=== PATIENT | male | born 1945 | race Caucasian/White ===

== ENCOUNTER 2018-07-20 20:02 | Inpatient (IN) ==
[2018-07-20] MEDS ORDERED: Isovue-370 500 ML INFUS..BTL IV ONE (20:44)
[2018-07-20] MEDS ORDERED: 0.9 % Sodium Chloride 1,000 ML IVC ONE (20:46)
[2018-07-20] MEDS ORDERED: Ondansetron 4 MG/2 ML VIAL IVP ONE (20:47)
[2018-07-20] MEDS ORDERED: *HR* FentaNYL (PF) 100 MCG/2 ML VIAL IVP ONE (20:47)
--- NOTE | 2018-07-20 20:48 | Emergency Department Note ---
Disposition Clinical Impression: Small bowel obstruction Disposition: Admitted As Inpatient Condition: Good Forms: ED Satisfaction Letter, Work/School Release General Adult HPI - General Chief complaint: ED Abdominal Pain Stated complaint: sent from to have CT scan Time Seen by Provider: 07/20/18 20:35 Source: patient Limitations: no limitations Nursing Notes Reviewed: Yes Vital Signs Reviewed: Yes - History of Present Illness HPI Narrative: Patient with significant past medical history including Crohn's disease as well as 2 previous resections. Last resection was approximately 15 years ago. Patient states is been doing well. Patient states symptoms started on Saturday with abdominal distention and pain. Presently worst cause an episode of vomiting today. Last meal was 10:00 on Saturday. Patient has not been passing gas. No recent bowel movement. The patient does have some mild abdominal di stention. Was seen at urgent care prior to arrival with KUB showing concern for dilated loops of bowel. Patient will be given fluids as well as pain and nausea medication. Last CT pending. Pain Scale: 6 - Related Data Home Medications Medication Instructions Recorded Confirmed Cholecalciferol (D-3) [Vitamin D] 2,000 unit PO DAILY 01/30/16 03/03/16 Cyanocobalamin (Vitamin B-12) 1,000 mcg SL DAILY 01/30/16 03/03/16 [Vitamin B-12] Finasteride [Proscar] 5 mg PO DAILY 01/30/16 03/03/16 Hyoscyamine SL [Levsin Sl] 0.125 mg SL Q6H PRN 01/30/16 03/03/16 Losartan [Cozaar] 25 mg PO DAILY 01/30/16 03/03/16 Omeprazole [PriLOSEC] 40 mg PO DAILY 01/30/16 03/03/16 Potassium Chloride [K-Tab ER] 20 meq PO TID 01/30/16 03/03/16 Promethazine [Phenergan] 25 mg PO Q4H PRN 01/30/16 03/03/16 Tamsulosin [Flomax] 0.4 mg PO BID 01/30/16 03/03/16 Clotrimazole 1% CRM [Lotrimin 1%] 1 appl TP BID 02/09/16 03/03/16 Loperamide HCl [Imodium A-D] 2 mg PO BID 02/09/16 03/03/16 Previous Rx's Medication Instructions Recorded cephALEXin [Keflex] 500 mg PO QID #40 capsule 03/03/16 Acetaminophen [Tylenol] 500 mg PO Q6HR PRN #20 tablet 07/20/18 Omeprazole 20 mg PO DAILY #7 tablet. 07/20/18 predniSONE [PredniSONE] 20 mg PO BID #10 tablet 07/20/18 Allergies Allergy/AdvReac Type Severity Reaction Status Date / Time No Known Allergies Allergy Verified 07/20/18 20:13 Review of Systems: CONSTITUTIONAL: No weight loss, fever, chills, weakness or fatigue. HEENT: Eyes: No visual changes. Ears, Nose, Throat: No hearing loss, difficulty talking or unable to swallow. SKIN: No rash or itching. CARDIOVASCULAR: No chest pain, chest pressure or chest discomfort. No palpitations or edema. RESPIRATORY: No shortness of breath, cough or sputum. GASTROINTESTINAL: Abdominal pain with decreased appetite and one episode of nonbloody nonbilious emesis. GENITOURINARY: No burning on urination or hematuria. NEUROLOGICAL: No headache, dizziness, syncope, paralysis, ataxia, numbness or tingling in the extremities. No change in bowel or bladder control. MUSCULOSKELETAL: No muscle pain, back pain, joint pain or stiffness. Past Medical History - Past Medical History Medical history: Reports: hypertension Surgical history: Reports: appendectomy, cholecystectomy, other Psychiatric history: Reports: no psych history - Social History Smoking Status: Never smoker Smokeless Tobacco Status: No Alcohol use: Reports: none Drug use: Reports: none Physical Exam General: Well appearing, nontoxic, no acute distress Head: Normocephalic Atraumatic Eyes: PERRL, EOMI ENT: Airway patent, no stridor Neck: supple Chest: Lungs clear to auscultation bilateral Cardiac: Regular rate and rhythm, no murmurs, rubs or gallops Abdomen: soft, mild generalized abdominal pain with moderate abdominal distention; no guarding, rebound, or tenderness to percussion Musculoskeletal: Calves symmetric, nontender Skin: No rash, normal skin tone Neuro: Alert and Oriented to person, place, and time; No focal deficit - General Limitations: no limitations General appearance: alert Course - Reevaluation(s) Reevaluation #1: Patient's blood work is unremarkable. Patient feels significantly better after medications. Pending CT scan. Reevaluation #2: CT scans shows small bowel obstruction. Patient has not passed gas today. E pisode of vomiting. No bowel movement. Patient will require admission. - Consultations Consultation #1: Discussed with hospitalist. Patient accepted pending surgical consultation. Consultation #2: Discussed with general surgery, Dr. Flynn, patient to receive NG tube and admission to the hospital service. Vital Signs Temperature 98.2 F 07/20/18 20:13 Pulse Rate 124 07/20/18 20:13 Respiratory Rate 17 07/20/18 20:13 Blood Pressure 136/88 07/20/18 20:13 O2 Sat by Pulse Oximetry 98 07/20/18 20:13 Temperature 98.2 F 07/20/18 20:13 Pulse Rate 87 07/20/18 22:45 Respiratory Rate 16 07/20/18 22:45 Blood Pressure 125/75 07/20/18 22:45 O2 Sat by Pulse Oximetry 98 07/20/18 22:45 Oxygen Delivery Oxygen Delivery Room Air Medical Decision Making - Lab Data Result diagrams: 07/20/18 20:43 07/20/18 20:43 Lab Results 07/20/18 07/20/18 07/20/18 Range/Units 20:43 20:43 20:43 WBC 10.8 (4.3-11.1) K/mcL RBC 5.50 (4.19-5.50) M/mcL Hgb 11.6 L (12.9-16.9) g/dL Hct 38.6 (37.5-50.1) % MCV 70.2 L (83.0-100.0) fL MCH 21.1 L (28.0-33.3) pg MCHC 30.1 L (31.6-35.5) g/dL RDW 17.9 H (11.5-14.5) % Plt Count 219 (140-400) K/mcL MPV 9.8 (9.4-12.4) fL Immature Gran % 0.2 (0-4) % Seg Neutrophils % 86.8 % Lymphocytes % 4.1 % Monocytes % 8.6 % Eosinophils % 0.1 % Basophils % 0.2 % Neutrophils # 9.4 H (1.6-8.9) K/mcL Lymphocytes # 0.4 L (0.6-4.6) K/mcL Monocytes # 0.9 (0.0-1.3) K/mcL Eosinophils # 0.0 (0.0-0.6) K/mcL Basophils # 0.0 (0.0-0.2) K/mcL Platelet Estimate Normal (Normal) Immature Plt Fraction 2.5 (1.1-6.1) % Hypochromasia Present A (Not Present) Anisocytosis 1+ A (Not Present) Sodium 139 (136-145) mEq/L Potassium 3.4 L (3.5-5.1) mEq/L Chloride 104 (98-107) mEq/L Carbon Dioxide 24 (23-29) mEq/L BUN 15 (8-23) mg/dL Creatinine 0.91 (0.70-1.30) mg/dL Est GFR ( Amer) > 60 (> 60) Est GFR (Non-Af Amer) > 60 (> 60) BUN/Creatinine Ratio 16 (6-26) Glucose 133 H (70-105) mg/dL Calculated Osmolality 291 (280-300) Lactic Acid (0.5-2.2) mmol/L Calcium 9.6 (8.6-10.3) mg/dL Total Bilirubin 1.2 H (0.3-1.0) mg/dL Direct Bilirubin 0.3 H (0.0-0.2) mg/dL Indirect Bilirubin 0.9 (0.0-1.2) mg/dL AST 61 H (13-39) Units/L ALT 47 (7-52) Units/L Alkaline Phosphatase 75 (34-104) Units/L Troponin I < 0.03 (< 0.04) ng/mL Serum Total Protein 6.8 (6.4-8.9) g/dL Albumin 4.3 (3.5-5.7) g/dL Globulin 2.5 (2.4-3.5) g/dL Albumin/Globulin Ratio 1.7 (1.1-2.2) Amylase 38 (29-103) Units/L Lipase 5 L (11-82) Units/L Urine Color (Yellow) Urine Clarity (Clear) Urine pH (5.0-8.0) pH Units Ur Specific [place] (1.010-1.025) Urine Protein (Neg-Trace) mg/dL Urine Glucose (UA) (Normal) mg/dL Urine Ketones (Negative) mg/dL Urine Blood (Negative) Urine Nitrite (Negative) Urine Bilirubin (Negative) Urine Urobilinogen (Normal) mg/dL Ur Leukocyte Esterase (Negative) Urine Microscopic RBC (0-3) per hpf Urine Microscopic WBC (0-3) per hpf Ur Squamous Epith Cells (None-Few) per lpf Urine Bacteria (None-Few) per hpf Hyaline Casts (None-Few) per lpf Ur Culture Indicated? (NO) 07/20/18 07/20/18 Range/Units 21:05 21:15 WBC (4.3-11.1) K/mcL RBC (4.19-5.50) M/mcL Hgb (12.9-16.9) g/dL Hct (37.5-50.1) % MCV (83.0-100.0) fL MCH (28.0-33.3) pg MCHC (31.6-35.5) g/dL RDW (11.5-14.5) % Plt Count (140-400) K/mcL MPV (9.4-12.4) fL Immature Gran % (0-4) % Seg Neutrophils % % Lymphocytes % % Monocytes % % Eosinophils % % Basophils % % Neutrophils # (1.6-8.9) K/mcL Lymphocytes # (0.6-4.6) K/mcL Monocytes # (0.0-1.3) K/mcL Eosinophils # (0.0-0.6) K/mcL Basophils # (0.0-0.2) K/mcL Platelet Estimate (Normal) Immature Plt Fraction (1.1-6.1) % Hypochromasia (Not Present) Anisocytosis (Not Present) Sodium (136-145) mEq/L Potassium (3.5-5.1) mEq/L Chloride (98-107) mEq/L Carbon Dioxide (23-29) mEq/L BUN (8-23) mg/dL Creatinine (0.70-1.30) mg/dL Est GFR ( Amer) (> 60) Est GFR (Non-Af Amer) (> 60) BUN/Creatinine Ratio (6-26) Glucose (70-105) mg/dL Calculated Osmolality (280-300) Lactic Acid 1.1 (0.5-2.2) mmol/L Calcium (8.6-10.3) mg/dL Total Bilirubin (0.3-1.0) mg/dL Direct Bilirubin (0.0-0.2) mg/dL Indirect Bilirubin (0.0-1.2) mg/dL AST (13-39) Units/L ALT (7-52) Units/L Alkaline Phosphatase (34-104) Units/L Troponin I (< 0.04) ng/mL Serum Total Protein (6.4-8.9) g/dL Albumin (3.5-5.7) g/dL Globulin (2.4-3.5) g/dL Albumin/Globulin Ratio (1.1-2.2) Amylase (29-103) Units/L Lipase (11-82) Units/L Urine Color Dark Yellow (Yellow) Urine Clarity Clear (Clear) Urine pH 5.5 (5.0-8.0) pH Units Ur Specific [place] > 1.030 H (1.010-1.025) Urine Protein 30 H (Neg-Trace) mg/dL Urine Glucose (UA) Normal (Normal) mg/dL Urine Ketones Trace H (Negative) mg/dL Urine Blood Negative (Negative) Urine Nitrite Negative (Negative) Urine Bilirubin Small H (Negative) Urine Urobilinogen Normal (Normal) mg/dL Ur Leukocyte Esterase Negative (Negative) Urine Microscopic RBC 5-15 H (0-3) per hpf Urine Microscopic WBC 3-5 H (0-3) per hpf Ur Squamous Epith Cells Moderate H (None-Few) per lpf Urine Bacteria None Seen (None-Few) per hpf Hyaline Casts None Seen (None-Few) per lpf Ur Culture Indicated? NO (NO)
[2018-07-20 21:14] LABS: Bilirubin,Urine Small (Negative); Blood,Urine Negative (Negative); Clarity,Urine Clear (Clear); Color,Urine Dark Yellow (Yellow); Glucose,Urine (UA) Normal (Normal); Ketones,Urine Trace mg/dL (Negative); Leukocyte Esterase,Urine Negative (Negative); Nitrite,Urine Negative (Negative); PH,Urine 5.5 pH Units (5.0-8.0); Protein,Urine 30 mg/dL (Neg-Trace); Specific Gravity,Urine > 1.030 (1.010-1.025); Urobilinogen,Urine Normal (Normal)
[2018-07-20 21:16] LABS: Bacteria,Urine None Seen per hpf (None-Few); Hyaline Casts,Urine None Seen per lpf (None-Few); Squamous Epithelial Cell,Urine Moderate per lpf (None-Few)
[2018-07-20 21:29] LABS: Eosinophils % 0.1 %; Mean Corpuscular HGB Conc 30.1 g/dL (31.6-35.5)
[2018-07-20 21:31] LABS: Basophils % 0.2 %; Hematocrit 38.6 % (37.5-50.1); Hemoglobin 11.6 g/dL (12.9-16.9); Immature Granulocytes % 0.2 % (0-4); Immature Platelets 2.5 % (1.1-6.1); Lymphocytes # 0.4 K/mcL (0.6-4.6); Lymphocytes % 4.1 %; Mean Corpuscular Hemoglobin 21.1 pg (28.0-33.3); Mean Corpuscular Volume 70.2 fL (83.0-100.0); Mean Platelet Volume 9.8 fL (9.4-12.4); Monocytes # 0.9 K/mcL (0.0-1.3); Monocytes % 8.6 %; Neutrophils # 9.4 K/mcL (1.6-8.9); Platelet Count 219 K/mcL (140-400); Red Cell Distribution Width 17.9 % (11.5-14.5); Segmented Neutrophils % 86.8 %
[2018-07-20 21:45] LABS: Anisocytosis 1+ (Not Present); Hypochromasia Present (Not Present); Platelet Estimate Normal (Normal)
[2018-07-20 21:47] LABS: Alanine Aminotransferase 47 Units/L (7-52); Albumin 4.3 g/dL (3.5-5.7); Albumin/Globulin Ratio 1.7 (1.1-2.2); Alkaline Phosphatase 75 Units/L (34-104); Amylase 38 Units/L (29-103); Aspartate Amino Transferase 61 Units/L (13-39); BUN/Creatinine Ratio 16 (6-26); Bilirubin,Direct 0.3 mg/dL (0.0-0.2); Bilirubin,Indirect 0.9 mg/dL (0.0-1.2); Bilirubin,Total 1.2 mg/dL (0.3-1.0); Blood Urea Nitrogen 15 mg/dL (8-23); Calcium 9.6 mg/dL (8.6-10.3); Carbon Dioxide 24 mEq/L (23-29); Chloride 104 mEq/L (98-107); Globulin 2.5 g/dL (2.4-3.5); Glucose 133 mg/dL (70-105); Lipase 5 Units/L (11-82); Osmolality,Calculated 291 (280-300); Potassium 3.4 mEq/L (3.5-5.1); Sodium 139 mEq/L (136-145); Total Protein 6.8 g/dL (6.4-8.9); eGFR For Non-African Americans > 60 (> 60)
[2018-07-20] MEDS ORDERED: Lidocaine Jelly 6ml 1 APPL/6 ML JEL.PF.APP MM STA (23:27)
[2018-07-20 23:40] LABS: Magnesium 1.6 mg/dL (1.6-2.6)
[2018-07-20] MEDS ORDERED: Naloxone 0.4 MG/ML INJ IVP PRN (23:53)
[2018-07-20] MEDS ORDERED: OXYCODONE Oral CONC 10 MG/0.5 ML ORAL.SYG SL PRN (23:53)
--- NOTE | 2018-07-20 23:53 | Internal Med History&Physical ---
Date of Encounter: 07/21/18 Time of Encounter: 23:52 Internal Medicine - H&P: HPI Chief complaint: abdominal pain Admitted From: Home Plans for Post Hospital Care: Home History of present illness: Patient seen on 07/20/18. Dexter Castro is a 72 year old man with a history of Crohn's disease who had bowel resection 14 years ago, hypertension and BPH who presents to the emergency room today complaining of abdominal pain for the past 2 days. He localizes the pain to the periumbilical region predominantly and is accompanied by nausea. He had 1 episode of emesis and states that his burps are foul-smelling. He has maintained bowel movements however, most recently in the afternoon before coming to the emergency room. In the ER he was seen clinically and hemodynamically. CT scan was done and showed signs of small bowel obstruction. He is admitted for ongoing observation. He received fentanyl for pain and has felt better ever since. Past Med Surg Social Fam HX - Past Medical History Medical history: hypertension Additional medical history: Crohns, Psychiatric history: no psych history - Past Surgical History Surgical History: appendectomy, cholecystectomy, other Additional surgical history: 01/30/16 R PERCUTANEOUS NEPHROLITHOTOMY + FLEXIBLE CYSTOSCOPY @[facility] - Social History Smoking Status: Never smoker Smokeless Tobacco Status: No Alcohol use: none Drug use: none Internal Medicine - H&P: Meds Cholecalciferol (D-3) [Vitamin D] 2,000 unit PO DAILY 01/30/16 [History] Cyanocobalamin (Vitamin B-12) [Vitamin B-12] 1,000 mcg SL DAILY 01/30/16 [Hi story] Finasteride [Proscar] 5 mg PO DAILY 01/30/16 [History] Hyoscyamine SL [Levsin Sl] 0.125 mg SL Q6H PRN 01/30/16 [History] Losartan [Cozaar] 25 mg PO DAILY 01/30/16 [History] Omeprazole [PriLOSEC] 40 mg PO DAILY 01/30/16 [History] Potassium Chloride [K-Tab ER] 20 meq PO TID 01/30/16 [History] Promethazine [Phenergan] 25 mg PO Q4H PRN 01/30/16 [History] Tamsulosin [Flomax] 0.4 mg PO BID 01/30/16 [History] Clotrimazole 1% CRM [Lotrimin 1%] 1 appl TP BID 02/09/16 [History] Loperamide HCl [Imodium A-D] 2 mg PO BID 02/09/16 [History] cephALEXin [Keflex] 500 mg PO QID #40 capsule 03/03/16 [Rx] Acetaminophen [Tylenol] 500 mg PO Q6HR PRN #20 tablet 07/20/18 [Rx] Omeprazole 20 mg PO DAILY #7 tablet. 07/20/18 [Rx] predniSONE [PredniSONE] 20 mg PO BID #10 tablet 07/20/18 [Rx] Allergy/AdvReac Type Severity Reaction Status Date / Time No Known Allergies Allergy Verified 07/20/18 20:13 All Systems PM: A 10-system review of systems was performed and is negative for pertinent findings except as documented above in the HPI. Family history obtained and noncontributory. - Constitutional Vitals: Temp Pulse Resp BP Pulse Ox 98.2 F 87 16 125/75 98 07/20/18 20:13 07/20/18 22:45 07/20/18 22:45 07/20/18 22:45 07/20/18 22:45 Exam: Vitals: Reviewed General: Well developed lying comfortable in bed in NAD Skin: Warm and supple. HEENT: Moist mucous membranes. No conjunctivae pallor. Neck: No lymphadenopathy. No JVD. No carotid bruits. No palpable thyroid. Chest: Normal thoracic expansion. Normal breath sounds. Clear to auscultation. Heart: Normal S1 & S2; rhythmic. No rubs or murmurs. Abdomen: Non-distended, soft and minimally tender to palpation in the periumbilical area. Midline surgical incision scar noted. Extremities: No clubbing, cyanosis or edema. No calf tenderness. Normal distal pulses. Neurological: Awake, alert and oriented to person, place and time. No focal deficits. Psych: Affect appropriate. Internal Med - H&P Results - Labs CBC & Chem 7: 07/20/18 20:43 07/20/18 20:43 Labs: Short CBC 07/20/18 Range/Units 20:43 WBC 10.8 (4.3-11.1) K/mcL Hgb 11.6 L (12.9-16.9) g/dL Hct 38.6 (37.5-50.1) % Plt Count 219 (140-400) K/mcL Neutrophils # 9.4 H (1.6-8.9) K/mcL BMP 07/20/18 20:43 Sodium 139 Potassium 3.4 L Chloride 104 Carbon Dioxide 24 BUN 15 Creatinine 0.91 Glucose 133 H Calcium 9.6 Cardiac Enzymes 07/20/18 Range/Units 20:43 Troponin I < 0.03 (< 0.04) ng/mL Liver Function 07/20/18 Range/Units 20:43 Total Bilirubin 1.2 H (0.3-1.0) mg/dL Direct Bilirubin 0.3 H (0.0-0.2) mg/dL AST 61 H (13-39) Units/L ALT 47 (7-52) Units/L Alkaline Phosphatase 75 (34-104) Units/L Albumin 4.3 (3.5-5.7) g/dL Urine 07/20/18 Range/Units 21:05 Urine Color Dark Yellow (Yellow) Urine Clarity Clear (Clear) Urine pH 5.5 (5.0-8.0) pH Units Ur Specific [place] > 1.030 H (1.010-1.025) Urine Protein 30 H (Neg-Trace) mg/dL Urine Glucose (UA) Normal (Normal) mg/dL - Impressions ITS Impressions Abdomen/Pelvis CT 07/20/18 20:44 IMPRESSION: Dilated fluid-filled loops of small bowel to the level of the anastomosis. Mild wall thickening of the distal ileum proximal to the anastomosis. Findings suggest small bowel obstruction. D/ / 07/20/2018 22:52:50 Andry Acevedo MD / ashley Interpreting Provider: Andry Acevedo MD - Assessment and plan (1) Small bowel obstruction Current Visit: Yes Status: Acute Assessment and plan: Will keep NPO. Surgery consult. Insert NG tube and connect to intermittent suction. Pain control as needed. (2) Abdominal pain Current Visit: Yes Status: Acute Assessment and plan: Secondary to SBO. Will provide pain meds as needed. Qualifiers: Abdominal location: periumbilical Qualified Code(s): R10.33 - Periumbilical pain (3) HTN (hypertension) Current Visit: Yes Status: Acute Assessment and plan: Stable and well controlled. Will resume oral agents once feasible. Qualifiers: Hypertension type: essential hypertension Qualified Code(s): I10 - Essential (primary) hypertension (4) BPH (benign prostatic hyperplasia) Current Visit: Yes Status: Chronic Assessment and plan: Tamsulosin on hold for now. Qualifiers: Lower urinary tract symptom presence: symptoms present Lower urinary tract symptom detail: unspecified Qualified Code(s): N40.1 - Benign prostatic hyperplasia with lower urinary tract symptoms (5) DVT prophylaxis Current Visit: Yes Status: Acute Assessment and plan: SubQ heparin. (6) Crohn disease Current Visit: Yes Status: Resolved Assessment and plan: No evidence of recurrence since surgery 14 years ago. Qualifiers: Gastrointestinal tract location: unspecified location Digestive disease complication type: unspecified complication Qualified Code(s): K50.919 - Crohn's disease, unspecified, with unspecified complications (7) Right kidney stone Current Visit: Yes Status: Resolved Assessment and plan: S/p extraction. Asymptomatic since. No evidence of recurrence. - Time Spent With Patient Total time spent is greater than 50% in coordination of care (as documented) at patient's floor/unit and/or counseling patient: Greater than 35 minutes
[2018-07-21] MEDS ORDERED: *HR* Promethazine 25 MG/ML VIAL IVP PRN (00:02)
[2018-07-21] MEDS ORDERED: Ondansetron 4 MG/2 ML VIAL IVP PRN (00:02)
[2018-07-21] MEDS: Ringers Solution, Lactated 1,000 ML IVC SCH ×3 (00:09→17:36)
[2018-07-21] MEDS: OXYCODONE Oral CONC 10 MG/0.5 ML ORAL.SYG SL PRN (02:12)
[2018-07-21] MEDS: Ketorolac 30 MG/ML VIAL IVP PRN (04:30)
[2018-07-21] MEDS: *HR* Heparin 5,000 UNIT/ML VIAL SQ SCH ×3 (05:25→20:55)
[2018-07-21 06:34] LABS: Monocytes % 7.7 %
[2018-07-21 06:36] LABS: Basophils % 0.1 %; Hematocrit 31.9 % (37.5-50.1); Hemoglobin 9.7 g/dL (12.9-16.9); Immature Granulocytes % 0.1 % (0-4); Immature Platelets 2.4 % (1.1-6.1); Lymphocytes # 0.5 K/mcL (0.6-4.6); Lymphocytes % 6.8 %; Mean Corpuscular HGB Conc 30.4 g/dL (31.6-35.5); Mean Corpuscular Hemoglobin 21.1 pg (28.0-33.3); Mean Corpuscular Volume 69.5 fL (83.0-100.0); Mean Platelet Volume 10.3 fL (9.4-12.4); Monocytes # 0.6 K/mcL (0.0-1.3); Neutrophils # 6.1 K/mcL (1.6-8.9); Platelet Count 182 K/mcL (140-400); Red Blood Count 4.59 M/mcL (4.19-5.50); Red Cell Distribution Width 17.6 % (11.5-14.5); Segmented Neutrophils % 85.3 %
[2018-07-21 06:41] LABS: INR 1.1; Prothrombin Time 12.9 Seconds (9.4-12.1)
[2018-07-21 06:43] LABS: Activated Partial Thrombo Time 28.7 Seconds (26.0-36.0)
[2018-07-21 06:55] LABS: BUN/Creatinine Ratio 18 (6-26); Blood Urea Nitrogen 15 mg/dL (8-23); Calcium 8.7 mg/dL (8.6-10.3); Carbon Dioxide 24 mEq/L (23-29); Chloride 108 mEq/L (98-107); Glucose 120 mg/dL (70-105); Osmolality,Calculated 290 (280-300); Potassium 3.5 mEq/L (3.5-5.1); Sodium 139 mEq/L (136-145); eGFR For Non-African Americans > 60 (> 60)
[2018-07-21 08:28] LABS: Platelet Estimate Normal (Normal)
[2018-07-21 08:29] LABS: Hypochromasia Present (Not Present); Microcytosis Present (Not Present); Poikilocytosis 1+ (Not Present)
[2018-07-21 08:30] LABS: Polychromasia 1+ (Not Present)
--- NOTE | 2018-07-21 10:15 | Internal Med Progress Note ---
<Karthikeyan Mcmahan S - Last Filed: 07/21/18 11:57> Hospitalist Progress Note - Encounter Date of Encounter: 07/21/18 Time of Encounter: 10:09 - Subjective Interval History: Pt is seen at bedside. He is a 72yo male with a PMH of Chron's disease s/p bowel resection, HTN, and BPH. He presented to the ER on 07/20 with the cc of abdomina l pain starting Saturday. He states that the pain was in the bottom of his belly, in his periumbilical region and is assoc with nausea. He had a few episodes of vomiting, the last one over 24hrs ago. He states he is still able to gas gas and burp. His last BM was 07/21 at 0530. At the worst his pain is a 10/10 but with medication, his pain goes down to a 5/10. In the ER, he had a CT scan of the abdomen which showed signs of SBO and was admitted for further workup. He states that this was the first time he has ever had a small bowel obstruction. Currently he has no acute concerns or complaints other than abdominal pain, which has decreased in severity. - Exam Vitals: Temp Pulse Resp BP Pulse Ox 97.8 F 57 16 125/73 97 07/21/18 06:29 07/21/18 06:29 07/21/18 06:29 07/21/18 06:29 07/21/18 06:29 Exam: Vitals: Reviewed General: Well developed lying comfortable in bed in NAD HEENT: Moist mucous membranes. No conjunctivae pallor. Normocephalic, atraumatic Neck: No lymphadenopathy. No JVD. No carotid bruits. No palpable thyroid. Chest: Normal thoracic expansion. Normal breath sounds. Clear to auscultation. Heart: Normal S1 & S2; rhythmic. No rubs or murmurs. Clear to audsculatation. Abdomen: Non-distended, soft and minimally tender to palpation in the periumbilical area. Midline surgical incision scar noted x 2. No Rebound or uarding. Extremities: No clubbing, cyanosis or edema. No calf tenderness. Normal distal pulses. Neurological: Awake, alert and oriented to person, place and time. No focal deficits. Psych: Affect and mood appropriate. - Assessment and Plan (1) Small bowel obstruction Current Visit: Yes Status: Acute Assessment and Plan: Pt presented after 2 day hx of increasing periumbilical abd pain - has hx of Chron's disease and has had abdominal surgery x 2 - SBO most likely secondary to adhesions from multiple abdominal sx CT scan on admission showed SBO No rebound/guarding, no peritoneal signs Pt reports passing gas/belching and having a bowel movement this morning at 0530 Plan: - Surgery consulted Diet as per surgery, will progress diet as tolerated once secretions in NG tube are clear NPO currently Surgery not recommending urgent surgical intervention - pain control as needed - NG tube in place , intermittent suction - 125cc/hr Lactated Ringers - IVP phenergan prn nausea - dispo: resolution of SBO, tolerating of oral intake (2) Abdominal pain Current Visit: Yes Status: Acute Assessment and Plan: Secondary to SBO, see plan as above. (3) Right kidney stone Current Visit: Yes Status: Resolved Assessment and Plan: S/p extraction. Asymptomatic since. No evidence of recurrence. (4) Crohn disease Current Visit: Yes Status: Resolved Assessment and Plan: Pt has hx of Chron's disease, diagnosed in the - has had hx of surgery x 2 w/ segments of colon removed - not on any immunomodulating rx (5) HTN (hypertension) Current Visit: No Status: Chronic Assessment and Plan: PO medications currently held BP 125/73 (6) BPH (benign prostatic hyperplasia) Current Visit: No Status: Chronic Assessment and Plan: On tamsulosin - currently held (7) DVT prophylaxis Current Visit: Yes Status: Acute Assessment and Plan: Heparin sq (8) GERD (gastroesophageal reflux disease) Current Visit: No Status: Chronic Assessment and Plan: On Prilosec - Time Spent with Patient Total time spent is greater than 50% in coordination of care (as documented) at patient's floor/unit and/or counseling patient: less than 15 minutes Plan of Care Discussed with: patient Internal Medicine: Result - Labs CBC & Chem 7: 07/21/18 05:40 07/21/18 05:40 Labs: Short CBC 07/20/18 07/21/18 Range/Units 20:43 05:40 WBC 10.8 7.1 (4.3-11.1) K/mcL Hgb 11.6 L 9.7 L D (12.9-16.9) g/dL Hct 38.6 31.9 L (37.5-50.1) % Plt Count 219 182 (140-400) K/mcL Neutrophils # 9.4 H 6.1 (1.6-8.9) K/mcL BMP 07/20/18 07/21/18 20:43 05:40 Sodium 139 139 Potassium 3.4 L 3.5 Chloride 104 108 H Carbon Dioxide 24 24 BUN 15 15 Creatinine 0.91 0.83 Glucose 133 H 120 H Calcium 9.6 8.7 Cardiac Enzymes 07/20/18 Range/Units 20:43 Troponin I < 0.03 (< 0.04) ng/mL Liver Function 07/20/18 Range/Units 20:43 Total Bilirubin 1.2 H (0.3-1.0) mg/dL Direct Bilirubin 0.3 H (0.0-0.2) mg/dL AST 61 H (13-39) Units/L ALT 47 (7-52) Units/L Alkaline Phosphatase 75 (34-104) Units/L Albumin 4.3 (3.5-5.7) g/dL Urine 07/20/18 Range/Units 21:05 Urine Color Dark Yellow (Yellow) Urine Clarity Clear (Clear) Urine pH 5.5 (5.0-8.0) pH Units Ur Specific Duncan > 1.030 H (1.010-1.025) Urine Protein 30 H (Neg-Trace) mg/dL Urine Glucose (UA) Normal (Normal) mg/dL - ABG Interpretation ABG results: PT/INR, D-dimer PT 12.9 Seconds (9.4-12.1) H 07/21/18 05:40 - Impressions Impressions Abdomen/Pelvis CT 07/20/18 20:44 IMPRESSION: Dilated fluid-filled loops of small bowel to the level of the anastomosis. Mild wall thickening of the distal ileum proximal to the anastomosis. Findings suggest small bowel obstruction. D/ / 07/20/2018 22:52:50 Andry Acevedo MD / ashley Interpreting Provider: Andry Acevedo MD Consult Discharge Plan - Plan Referrals: Jeremy Gruber DO [Partnered Physician] - 08/05/18 1:00 pm (New get establ ished appointment. If you need to cancel please give a 24 hour notice. Thank you) <Joelle Thomason - Last Filed: 07/21/18 16:38> Hospitalist Progress Note - Encounter Date of Encounter: 07/21/18 - Exam Vitals: Temp Pulse Resp BP Pulse Ox 98.1 F 62 16 129/76 95 07/21/18 15:20 07/21/18 15:20 07/21/18 15:20 07/21/18 15:20 07/21/18 15:20 - Assessment and Plan (1) Crohn disease Current Visit: Yes Status: Resolved (2) Small bowel obstruction Current Visit: Yes Status: Acute (3) Anemia Current Visit: Yes Status: Acute - Time Spent with Patient Total time spent is greater than 50% in coordination of care (as documented) at patient's floor/unit and/or counseling patient: Internal Medicine: Result - Labs CBC & Chem 7: 07/21/18 05:40 07/21/18 05:40 Labs: Short CBC 07/20/18 07/21/18 Range/Units 20:43 05:40 WBC 10.8 7.1 (4.3-11.1) K/mcL Hgb 11.6 L 9.7 L D (12.9-16.9) g/dL Hct 38.6 31.9 L (37.5-50.1) % Plt Count 219 182 (140-400) K/mcL Neutrophils # 9.4 H 6.1 (1.6-8.9) K/mcL BMP 07/20/18 07/21/18 20:43 05:40 Sodium 139 139 Potassium 3.4 L 3.5 Chloride 104 108 H Carbon Dioxide 24 24 BUN 15 15 Creatinine 0.91 0.83 Glucose 133 H 120 H Calcium 9.6 8.7 Cardiac Enzymes 07/20/18 Range/Units 20:43 Troponin I < 0.03 (< 0.04) ng/mL Liver Function 07/20/18 Range/Units 20:43 Total Bilirubin 1.2 H (0.3-1.0) mg/dL Direct Bilirubin 0.3 H (0.0-0.2) mg/dL AST 61 H (13-39) Units/L ALT 47 (7-52) Units/L Alkaline Phosphatase 75 (34-104) Units/L Albumin 4.3 (3.5-5.7) g/dL Urine 07/20/18 Range/Units 21:05 Urine Color Dark Yellow (Yellow) Urine Clarity Clear (Clear) Urine pH 5.5 (5.0-8.0) pH Units Ur Specific Duncan > 1.030 H (1.010-1.025) Urine Protein 30 H (Neg-Trace) mg/dL Urine Glucose (UA) Normal (Normal) mg/dL - ABG Interpretation ABG results: PT/INR, D-dimer PT 12.9 Seconds (9.4-12.1) H 07/21/18 05:40 - Impressions Impressions Abdomen/Pelvis CT 07/20/18 20:44 IMPRESSION: Dilated fluid-filled loops of small bowel to the level of the anastomosis. Mild wall thickening of the distal ileum proximal to the anastomosis. Findings suggest small bowel obstruction. D/ / 07/20/2018 22:52:50 Andry Acevedo MD / ashley Interpreting Provider: Andry Acevedo MD - Attending Attestation I have seen and assessed this patient and agree with plan per resident Plan Small bowel obstruction. NPO. IV fluids. NG tube with intermittent suctioning. Surgery following <Joelle Thomason - Last Filed: 07/21/18 16:38> (1) Crohn disease Qualifiers: Gastrointestinal tract location: unspecified location Digestive disease complication type: unspecified complication Qualified Code(s): K50.919 - Crohn's disease, unspecified, with unspecified complications (3) Anemia Qualifiers: Anemia type: unspecified type Qualified Code(s): D64.9 - Anemia, unspecified
--- NOTE | 2018-07-21 11:32 | General Surgery Consult Note ---
Date of Encounter: 07/21/18 Time of Encounter: 08:45 Assessment and Plan (1) Small bowel obstruction Current Visit: Yes Status: Acute CT (07/20) shows dilated fluid-filled loops of small bowel, mild wall thickening of distal ileum, concerning for SBO Patient has NGT with approximately 500 ml output of brown liquid today WBC 10.8 > 7.1 Lactic acid 1.1 IV toradol and SL oxycodone for pain Zofran and phenergan for nausea Protonix for GI prophylaxis IVF 125 ml/hr Patient reports improvement in abdominal pain this morning, will continue to monitor NG output (2) Crohn disease Current Visit: Yes Status: Resolved Consulted GI Patient states he is followed by Dr. Sue Qualifiers: Gastrointestinal tract location: unspecified location Digestive disease complication type: unspecified complication Qualified Code(s): K50.919 - Crohn's disease, unspecified, with unspecified complications (3) HTN (hypertension) Current Visit: No Status: Chronic Management per primary team BP 130/78 Qualifiers: Hypertension type: essential hypertension Qualified Code(s): I10 - Essential (primary) hypertension History of Present Illness Consult date: 07/21/18 Reason for consult: other (small bowel obstruction) Requesting physician: Rishabh Bliss History of present illness: 72 year old male with PMHx of HTN + Crohn's s/p 2 bowel resections presented to [facility] on 07/20 with complaints of abdominal pain, nausea, and vomiting. Surgery was consulted for small bowel obstruction. In ED, patient's labs showed WBC 10.8, lactic acid 1.1, AST 61, ALT 47, T. bili 1.2, Alk phos 75, lipase 5. CT concerning for small bowel obstruction with dilated fluid-filled loops of small bowel and mild wall thickening of the distal ileum. Patient was made NPO with IVF and NGT was placed. Patient seen and examined today. Patient states he developed diffuse, achy, intermittent abdominal pain on July 19. He had one episode of non-bloody, non-bilious emesis on 07/20. He last ate yesterday. Patient states he had a BM this morning, which was non-bloody. Patient denies current nausea, vomiting, fevers/chills, CP, SOB. Patient states he is followed by Dr. Sue for Crohn's. His last colonoscopy was 2-3 years ago. He admits to a surgical history of 2 bowel resections 2/2 to Crohn's complications >30 years ago. He also states his appendix and gallbladder were removed during those procedures. Patient denies smoking, alcohol, and drug use. Past Med Surg Social Fam HX - Past Medical History Medical history: arthritis, hypertension Additional medical history: Crohns, Psychiatric history: no psych history - Past Surgical History Surgical History: appendectomy, cholecystectomy, other Additional surgical history: 01/30/16 R PERCUTANEOUS NEPHROLITHOTOMY + FLEXIBLE CYSTOSCOPY @[facility] - Social History Smoking Status: Never smoker Smokeless Tobacco Status: No Alcohol use: none Drug use: none - Family History Mother Age: 92 Living Status: Hx Family Cardiac Disorders: Yes Medications and Allergies Cholecalciferol (D-3) [Vitamin D] 2,000 unit PO DAILY 01/30/16 [History] Cyanocobalamin (Vitamin B-12) [Vitamin B-12] 1,000 mcg SL DAILY 01/30/16 [History] Finasteride [Proscar] 5 mg PO DAILY 01/30/16 [History] Hyoscyamine SL [Levsin Sl] 0.125 mg SL Q6H PRN 01/30/16 [History] Losartan [Cozaar] 25 mg PO DAILY 01/30/16 [History] Omeprazole [PriLOSEC] 40 mg PO DAILY 01/30/16 [History] Potassium Chloride [K-Tab ER] 20 meq PO TID 01/30/16 [History] Promethazine [Phenergan] 25 mg PO Q4H PRN 01/30/16 [History] Tamsulosin [Flomax] 0.4 mg PO BID 01/30/16 [History] Clotrimazole 1% CRM [Lotrimin 1%] 1 appl TP BID 02/09/16 [History] Loperamide HCl [Imodium A-D] 2 mg PO BID 02/09/16 [History] cephALEXin [Keflex] 500 mg PO QID #40 capsule 03/03/16 [Rx] Acetaminophen [Tylenol] 500 mg PO Q6HR PRN #20 tablet 07/20/18 [Rx] Omeprazole 20 mg PO DAILY #7 tablet. 07/20/18 [Rx] predniSONE [PredniSONE] 20 mg PO BID #10 tablet 07/20/18 [Rx] Allergy/AdvReac Type Severity Reaction Status Date / Time No Known Allergies Allergy Verified 07/20/18 20:13 Review of Systems All systems PM: The remainder of the systems were reviewed and are negative General Surgery Exam Initial Vital Signs Temp Pulse Resp BP Pulse Ox 98.2 F 124 17 136/88 98 07/20/18 20:13 07/20/18 20:13 07/20/18 20:13 07/20/18 20:13 07/20/18 20:13 - General physical appearance well developed, no distress - ENT Other (NGT with green-brown liquid in container) - Respiratory normal expansion, normal respiratory effort - Abdomen Abdomen general surgery: Present: bowel sounds present, soft, tender, surgical scars Abdominal Tenderness: Present: diffusely Hernia: Present: none - Integumentary Integumentary general surgery: Present: warm and dry, no abnormal pigmentation - Psychiatric Psychiatric general surgery: Present: A&Ox3, appropriate Exam Initial Vital Signs Temp Pulse Resp BP Pulse Ox 98.2 F 124 17 136/88 98 07/20/18 20:13 07/20/18 20:13 07/20/18 20:13 07/20/18 20:13 07/20/18 20:13 Results - Labs 07/21/18 05:40 07/21/18 05:40 Abnormal lab results Hgb 9.7 g/dL (12.9-16.9) L D 07/21/18 05:40 Hct 31.9 % (37.5-50.1) L 07/21/18 05:40 MCV 69.5 fL (83.0-100.0) L 07/21/18 05:40 MCH 21.1 pg (28.0-33.3) L 07/21/18 05:40 MCHC 30.4 g/dL (31.6-35.5) L 07/21/18 05:40 RDW 17.6 % (11.5-14.5) H 07/21/18 05:40 Lymphocytes # 0.5 K/mcL (0.6-4.6) L 07/21/18 05:40 Polychromasia 1+ (Not Present) A 07/21/18 05:40 Hypochromasia Present (Not Present) A 07/21/18 05:40 Poikilocytosis 1+ (Not Present) A 07/21/18 05:40 Anisocytosis 1+ (Not Present) A 07/20/18 20:43 Microcytosis Present (Not Present) A 07/21/18 05:40 PT 12.9 Seconds (9.4-12.1) H 07/21/18 05:40 Chloride 108 mEq/L (98-107) H 07/21/18 05:40 Glucose 120 mg/dL (70-105) H 07/21/18 05:40 Total Bilirubin 1.2 mg/dL (0.3-1.0) H 07/20/18 20:43 Direct Bilirubin 0.3 mg/dL (0.0-0.2) H 07/20/18 20:43 AST 61 Units/L (13-39) H 07/20/18 20:43 Lipase 5 Units/L (11-82) L 07/20/18 20:43 Ur Specific Riparius > 1.030 (1.010-1.025) H 07/20/18 21:05 Urine Protein 30 mg/dL (Neg-Trace) H 07/20/18 21:05 Urine Ketones Trace mg/dL (Negative) H 07/20/18 21:05 Urine Bilirubin Small (Negative) H 07/20/18 21:05 Urine Microscopic RBC 5-15 per hpf (0-3) H 07/20/18 21:05 Urine Microscopic WBC 3-5 per hpf (0-3) H 07/20/18 21:05 Ur Squamous Epith Cells Moderate per lpf (None-Few) H 07/20/18 21:05 Diabetes panel 07/20/18 07/21/18 Range/Units 20:43 05:40 Sodium 139 139 (136-145) mEq/L Potassium 3.4 L 3.5 (3.5-5.1) mEq/L Chloride 104 108 H (98-107) mEq/L Carbon Dioxide 24 24 (23-29) mEq/L BUN 15 15 (8-23) mg/dL Creatinine 0.91 0.83 (0.70-1.30) mg/dL Glucose 133 H 120 H (70-105) mg/dL Calcium 9.6 8.7 (8.6-10.3) mg/dL AST 61 H (13-39) Units/L ALT 47 (7-52) Units/L Alkaline Phosphatase 75 (34-104) Units/L Albumin 4.3 (3.5-5.7) g/dL Calcium panel 07/20/18 07/21/18 Range/Units 20:43 05:40 Calcium 9.6 8.7 (8.6-10.3) mg/dL Albumin 4.3 (3.5-5.7) g/dL Pituitary panel 07/20/18 07/21/18 Range/Units 20:43 05:40 Sodium 139 139 (136-145) mEq/L Potassium 3.4 L 3.5 (3.5-5.1) mEq/L Chloride 104 108 H (98-107) mEq/L Carbon Dioxide 24 24 (23-29) mEq/L BUN 15 15 (8-23) mg/dL Creatinine 0.91 0.83 (0.70-1.30) mg/dL Glucose 133 H 120 H (70-105) mg/dL Calcium 9.6 8.7 (8.6-10.3) mg/dL Adrenal panel 07/20/18 07/21/18 Range/Units 20:43 05:40 Sodium 139 139 (136-145) mEq/L Potassium 3.4 L 3.5 (3.5-5.1) mEq/L Chloride 104 108 H (98-107) mEq/L Carbon Dioxide 24 24 (23-29) mEq/L BUN 15 15 (8-23) mg/dL Creatinine 0.91 0.83 (0.70-1.30) mg/dL Glucose 133 H 120 H (70-105) mg/dL Calcium 9.6 8.7 (8.6-10.3) mg/dL Total Bilirubin 1.2 H (0.3-1.0) mg/dL AST 61 H (13-39) Units/L ALT 47 (7-52) Units/L Alkaline Phosphatase 75 (34-104) Units/L Albumin 4.3 (3.5-5.7) g/dL All other labs normal. Consult Discharge Plan - Plan Referrals: Jeremy Gruber DO [Partnered Physician] - 08/05/18 1:00 pm (New get established appointment. If you need to cancel please give a 24 hour notice. Thank you)
[2018-07-21] MEDS: Pantoprazole 40 MG VIAL IVP SCH (13:46)
--- NOTE | 2018-07-21 14:20 | Gastroenterology Consult Note ---
<José MiguelDoug hightower - Last Filed: 07/21/18 16:00> Date of Encounter: 07/21/18 Time of Encounter: 14:18 - Assessment and plan (1) Small bowel obstruction Current Visit: Yes Status: Acute Assessment and plan: CT reviewed with radiology. Transition point small bowel obstruction appears to be ileocolonic anastomosis site. No evidence of acute inflammation or bowel wall thickening. Ileocolonic anastomosis was also noted to be narrow on colonoscopy in 2013. This is likely the cause of the patient's small bowel o bstruction. Does not appear to have acute Crohn's flare causing small bowel obstruction. Agree with medical management. No indication for steroid therapy at this time. We will discuss with patient, can consider colonoscopy with planned dilation of the ileocolonic anastomosis but this does come with a risk of bowel perforation so will go over risks and benefits with patient to determine further plan. Agree with IV fluids, NG tube for decompression, symptomatic management per hospitalist/surgical teams. (2) Crohn disease Current Visit: Yes Status: Resolved Assessment and plan: History of Crohn's disease status post 2 resections in 1979 and 1987. Overall patient seems relatively asymptomatic at baseline with just mild loose stools. Has never been on any therapy for Crohn's disease other than Imodium. Unlikely that a Crohn's disease flare is causing the patient's small bowel obstruction as discussed above. No indication for acute treatment with steroids. Qualifiers: Gastrointestinal tract location: unspecified location Digestive disease co mplication type: unspecified complication Qualified Code(s): K50.919 - Crohn's disease, unspecified, with unspecified complications (3) Anemia Current Visit: Yes Status: Acute Assessment and plan: Patient has history of B12 deficiency but noted to be microcytic today. On B12 therapy. We will recheck iron panel and B12. Qualifiers: Anemia type: unspecified type Qualified Code(s): D64.9 - Anemia, unspeci fied - Time Spent With Patient Total time spent is greater than 50% in coordination of care (as documented) at patient's floor/unit and/or counseling patient: GI History of Present Illness - Data of Consult Requesting Physician: Glory Ford MD - Consult Narrative History of present illness: Mr. Castro is a 72 year old male Past Med Surg Social Fam HX - Past Medical History Medical history: arthritis, hypertension Additional medical history: Crohns, Psychiatric history: no psych history - Past Surgical History Surgical History: appendectomy, cholecystectomy, other Additional surgical history: 01/30/16 R PERCUTANEOUS NEPHROLITHOTOMY + FLEXIBLE CYSTOSCOPY @[facility]. 1987 - Bowel resection due to crohns. 1979 - Bowel resection due to crohns - Social History Smoking Status: Never smoker Smokeless Tobacco Status: No Alcohol use: none Drug use: none - Family History Mother Age: 92 Living Status: Hx Family Cardiac Disorders: Yes All systems PM: reviewed and no additional remarkable complaints except as stated - Constitutional Vitals: Temp Pulse Resp BP Pulse Ox 98.1 F 59 16 130/78 97 07/21/18 11:11 07/21/18 11:11 07/21/18 11:11 07/21/18 11:11 07/21/18 11:11 General appearance: Present: A&O X 3, pleasant, no acute distress, answers questions appropriately - Head Head exam: Present: atraumatic, normal inspection, normocephalic - Eye Eye exam: Present: EOMI, PERRL - ENT ENT exam: Present: mucous membranes moist - Respiratory Respiratory exam: Present: CTAB. Absent: rales, rhonchi, wheezes - Cardiovascular Cardiovascular exam: Present: RRR. Absent: gallop, rubs, systolic murmur - GI/Abdominal GI/Abdominal exam: Present: normal bowel sounds, soft, tenderness (mild to palpation just superior to umbilibus), no peritoneal signs. Absent: distended, hepatomegaly, rigid, splenomegaly - Extremities Exam Extremities exam: Present: warm. Absent: pedal edema, tenderness - Skin Skin exam: Present: dry, intact, warm Results - Labs CBC & Chem 7: 07/21/18 05:40 07/21/18 05:40 Labs: Last Result Calcium 8.7 mg/dL (8.6-10.3) 07/21/18 05:40 Troponin I < 0.03 ng/mL (< 0.04) 07/20/18 20:43 Entire Visit Hgb 9.7 g/dL (12.9-16.9) L D 07/21/18 05:40 Hct 31.9 % (37.5-50.1) L 07/21/18 05:40 PT 12.9 Seconds (9.4-12.1) H 07/21/18 05:40 Total Bilirubin 1.2 mg/dL (0.3-1.0) H 07/20/18 20:43 AST 61 Units/L (13-39) H 07/20/18 20:43 ALT 47 Units/L (7-52) 07/20/18 20:43 Amylase 38 Units/L (29-103) 07/20/18 20:43 Lipase 5 Units/L (11-82) L 07/20/18 20:43 - ABG ABG results: PT/INR, D-dimer PT 12.9 Seconds (9.4-12.1) H 07/21/18 05:40 - Impressions Impressions Abdomen/Pelvis CT 07/20/18 20:44 IMPRESSION: Dilated fluid-filled loops of small bowel to the level of the anastomosis. Mild wall thickening of the distal ileum proximal to the anastomosis. Findings suggest small bowel obstruction. D/ / 07/20/2018 22:52:50 Andry Acevedo MD / ashley Interpreting Provider: Andry Acevedo MD Consult Discharge Plan - Plan Referrals: Jeremy Gruber, [Partnered Physician] - 08/05/18 1:00 pm (New get established appointment. If you need to cancel please give a 24 hour notice. Thank you) <Alton Sue - Last Filed: 07/21/18 21:15> Date of Encounter: 07/21/18 Time of Encounter: 18:00 - Time Spent With Patient Total time spent is greater than 50% in coordination of care (as documented) at patient's floor/unit and/or counseling patient: GI History of Present Illness - Data of Consult Requesting Physician: Glory Ford MD - Consult Narrative History of present illness: Mr. Castro is a 72 year old male - Constitutional Vitals: Temp Pulse Resp BP Pulse Ox 98.1 F 75 16 147/75 94 07/21/18 19:08 07/21/18 19:08 07/21/18 19:08 07/21/18 19:08 07/21/18 19:08 Results - Labs CBC & Chem 7: 07/21/18 05:40 07/21/18 05:40 Labs: Last Result Calcium 8.7 mg/dL (8.6-10.3) 07/21/18 05:40 Troponin I < 0.03 ng/mL (< 0.04) 07/20/18 20:43 Entire Visit Hgb 9.7 g/dL (12.9-16.9) L D 07/21/18 05:40 Hct 31.9 % (37.5-50.1) L 07/21/18 05:40 PT 12.9 Seconds (9.4-12.1) H 07/21/18 05:40 Total Bilirubin 1.2 mg/dL (0.3-1.0) H 07/20/18 20:43 AST 61 Units/L (13-39) H 07/20/18 20:43 ALT 47 Units/L (7-52) 07/20/18 20:43 Amylase 38 Units/L (29-103) 07/20/18 20:43 Lipase 5 Units/L (11-82) L 07/20/18 20:43 - ABG ABG results: PT/INR, D-dimer PT 12.9 Seconds (9.4-12.1) H 07/21/18 05:40 - Impressions Impressions Abdomen/Pelvis CT 07/20/18 20:44 IMPRESSION: Dilated fluid-filled loops of small bowel to the level of the anastomosis. Mild wall thickening of the distal ileum proximal to the anastomosis. Findings suggest small bowel obstruction. D/ / 07/20/2018 22:52:50 Andry Acevedo MD / ashley Interpreting Provider: Andry Acevedo MD - Attending Attestation I examined this patient and my medical decision-making was reviewed with the Resident Physician. I agree with the documented findings, disposition and treatment plan as described except to the extent set forth below. Pt seen with Dr Dominguez. 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 Rec: Will D/W with surgery. Need Colon with dilation of stenosis and if no relief then surgical resection
[2018-07-21] MEDS ORDERED: Chloraseptic Spray 177 ML BOTTLE MM PRN (15:47)
[2018-07-22] MEDS: Ringers Solution, Lactated 1,000 ML IVC SCH ×3 (00:52→21:02)
[2018-07-22] MEDS: Ketorolac 30 MG/ML VIAL IVP PRN ×2 (00:52→15:37)
[2018-07-22] MEDS: *HR* Heparin 5,000 UNIT/ML VIAL SQ SCH ×3 (05:57→21:01)
[2018-07-22] MEDS: OXYCODONE Oral CONC 10 MG/0.5 ML ORAL.SYG SL PRN (06:02)
[2018-07-22 07:02] LABS: Basophils % 0.2 %; Eosinophils # 0.1 K/mcL (0.0-0.6); Hematocrit 30.4 % (37.5-50.1); Hemoglobin 9.1 g/dL (12.9-16.9); Immature Granulocytes % 0.2 % (0-4); Lymphocytes # 0.5 K/mcL (0.6-4.6); Lymphocytes % 9.6 %; Mean Corpuscular HGB Conc 29.9 g/dL (31.6-35.5); Mean Corpuscular Hemoglobin 21.4 pg (28.0-33.3); Mean Corpuscular Volume 71.5 fL (83.0-100.0); Mean Platelet Volume 10.6 fL (9.4-12.4); Monocytes # 0.6 K/mcL (0.0-1.3); Monocytes % 12.5 %; Neutrophils # 3.7 K/mcL (1.6-8.9); Platelet Count 167 K/mcL (140-400); Red Blood Count 4.25 M/mcL (4.19-5.50); Red Cell Distribution Width 17.7 % (11.5-14.5); Segmented Neutrophils % 76.5 %
[2018-07-22 07:19] LABS: BUN/Creatinine Ratio 16 (6-26); Blood Urea Nitrogen 15 mg/dL (8-23); Calcium 8.4 mg/dL (8.6-10.3); Carbon Dioxide 25 mEq/L (23-29); Chloride 107 mEq/L (98-107); Glucose 80 mg/dL (70-105); Osmolality,Calculated 296 (280-300); Potassium 3.3 mEq/L (3.5-5.1); Sodium 143 mEq/L (136-145); eGFR For Non-African Americans > 60 (> 60)
[2018-07-22 07:20] LABS: % Iron Saturation 6 % (20-55); Iron 27 mcg/dL (65-175); Transferrin 314 mg/dL (203-362)
[2018-07-22 07:39] LABS: Ferritin 12 ng/mL (20-250)
--- NOTE | 2018-07-22 08:41 | Internal Med Progress Note ---
<Karthikeyan Mcmahan S - Last Filed: 07/22/18 10:16> Hospitalist Progress Note - Encounter Date of Encounter: 07/22/18 Time of Encounter: 08:39 - Subjective Interval History: Pt is seen at bedside. He is a 72yo male with a PMH of Chron's disease s/p bowel resection, HTN, and BPH. He presented to the ER on 07/20 with the cc of abdomina l pain starting Saturday. He states that the pain was in the bottom of his belly, in his periumbilical region and is assoc with nausea. He had a few episodes of vomiting, the last one over 24hrs ago. He states he is still able to gas gas and burp. He is having bowel movements still. In the ER, he had a CT scan of the abdomen which showed signs of SBO and was admitted for further workup. He states that this was the first time he has ever had a small bowel obstruction. Currently he is resting comfortably in bed. He has no acute complaints or concerns. His abdominal pain has improved overall - pt denies any chest pain, SOB, N/V/D - denies any episodes of vomiting in the last 24hrs - had a bowel movement this morning a little after midnight - Exam Vitals: Temp Pulse Resp BP Pulse Ox 97.9 F 73 15 131/69 96 07/22/18 05:11 07/22/18 05:11 07/22/18 05:11 07/22/18 05:11 07/22/18 07:37 Exam: Vitals: Reviewed General: Well developed lying comfortable in bed in NAD HEENT: Moist mucous membranes. No conjunctivae pallor. Normocephalic, atraumatic Neck: No lymphadenopathy. No JVD. No carotid bruits. No palpable thyroid. Chest: Normal thoracic expansion. Normal breath sounds. Clear to auscultation. Heart: Normal S1 & S2; rhythmic. No rubs or murmurs. Clear to audsculatation. Abdomen: Non-distended, soft and minimally tender to palpation in the periumbilical area. Midline surgical incision scar noted x 2. No Rebound or guarding. Extremities: No clubbing, cyanosis or edema. No calf tenderness. Normal distal pulses. Neurological: Awake, alert and oriented to person, place and time. No focal deficits. Psych: Affect and mood appropriate. - Assessment and Plan (1) Small bowel obstruction Current Visit: Yes Status: Acute Assessment and Plan: Pt presented after 2 day hx of increasing periumbilical abd pain - has hx of Chron's disease and has had abdominal surgery x 2 - SBO most likely secondary to adhesions from multiple abdominal sx CT scan on admission showed SBO No rebound/guarding, no peritoneal signs Pt reports passing gas/belching and having a bowel movement this morning KUB (07/22) - Tip of the NG tube terminates over the 2nd portion of the duodenum. - Recommend retracting 10-12 cm. Plan: - Surgery consulted Diet as per surgery, will progress diet as tolerated once secretions in NG tube are clear NPO currently Surgery not recommending urgent surgical intervention - GI consulted they state that this SBO is unlikely due to his chron's disease recommend colonosopcy with planned dilation of ileocolonic anastamosis - pain control as needed - NG tube in place , intermittent suction - 125cc/hr Lactated Ringers - IVP phenergan prn nausea - dispo: resolution of SBO, tolerating of oral intake (2) Crohn disease Current Visit: No Status: Chronic Assessment and Plan: Pt has hx of Chron's disease, diagnosed in the - has had hx of surgery x 2 w/ segments of colon removed - not on any immunomodulating rx (3) HTN (hypertension) Current Visit: No Status: Chronic Assessment and Plan: PO medications currently held BP 131/69 (4) BPH (benign prostatic hyperplasia) Current Visit: No Status: Chronic Assessment and Plan: On tamsulosin - currently held (5) DVT prophylaxis Current Visit: Yes Status: Acute Assessment and Plan: Heparin sq (6) GERD (gastroesophageal reflux disease) Current Visit: No Status: Chronic Assessment and Plan: On Prilosec (7) Anemia Current Visit: Yes Status: Acute Assessment and Plan: Chronic - at baseline - hemoglobin this morning 9.1 - likely nutritional vs poor absorption as Chron's can affct duodenom where iron is absorbed MCV is 71.5 iron 27, fe sat 6%, transferrin 314, ferritin 12 B12 330 - Time Spent with Patient Total time spent is greater than 50% in coordination of care (as documented) at patient's floor/unit and/or counseling patient: less than 15 minutes Plan of Care Discussed with: patient Internal Medicine: Result - Labs CBC & Chem 7: 07/22/18 06:13 07/22/18 06:13 Labs: Short CBC 07/22/18 Range/Units 06:13 WBC 4.8 (4.3-11.1) K/mcL Hgb 9.1 L (12.9-16.9) g/dL Hct 30.4 L (37.5-50.1) % Plt Count 167 (140-400) K/mcL Neutrophils # 3.7 (1.6-8.9) K/mcL BMP 07/22/18 06:13 Sodium 143 Potassium 3.3 L Chloride 107 Carbon Dioxide 25 BUN 15 Creatinine 0.91 Glucose 80 Calcium 8.4 L - ABG Interpretation ABG results: PT/INR, D-dimer PT 12.9 Seconds (9.4-12.1) H 07/21/18 05:40 - Impressions Impressions KUB X-Ray 07/21/18 13:17 IMPRESSION: Tip of the NG tube terminates over the 2nd portion of the duodenum. Recommend retracting 10-12 cm. The findings were sent to the Radiology Results Communication Center at 9:36 pm on 07/21/2018to be communicated to a licensed caregiver. D/ / Sylvain Payton / Sylvain Payton Interpreting Provider: Sylvain Payton Consult Discharge Plan - Plan Referrals: Jeremy Gruber, [Partnered Physician] - 08/05/18 1:00 pm (New get established appointment. If you need to cancel please give a 24 hour notice. Thank you) <David Richardson - Last Filed: 07/22/18 13:41> Hospitalist Progress Note - Encounter Date of Encounter: 07/22/18 Time of Encounter: 09:55 - Exam Vitals: Temp Pulse Resp BP Pulse Ox 98.0 F 75 15 141/81 95 07/22/18 10:34 07/22/18 10:34 07/22/18 10:34 07/22/18 10:34 07/22/18 10:34 - Assessment and Plan (1) Small bowel obstruction Current Visit: Yes Status: Acute (2) Crohn disease Current Visit: No Status: Chronic (3) HTN (hypertension) Current Visit: No Status: Chronic (4) BPH (benign prostatic hyperplasia) Current Visit: No Status: Chronic (5) DVT prophylaxis Current Visit: Yes Status: Acute (6) GERD (gastroesophageal reflux disease) Current Visit: No Status: Chronic (7) Anemia Current Visit: Yes Status: Acute - Time Spent with Patient Total time spent is greater than 50% in coordination of care (as documented) at patient's floor/unit and/or counseling patient: Internal Medicine: Result - Labs CBC & Chem 7: 07/22/18 06:13 07/22/18 06:13 Labs: Short CBC 07/22/18 Range/Units 06:13 WBC 4.8 (4.3-11.1) K/mcL Hgb 9.1 L (12.9-16.9) g/dL Hct 30.4 L (37.5-50.1) % Plt Count 167 (140-400) K/mcL Neutrophils # 3.7 (1.6-8.9) K/mcL BMP 07/22/18 06:13 Sodium 143 Potassium 3.3 L Chloride 107 Carbon Dioxide 25 BUN 15 Creatinine 0.91 Glucose 80 Calcium 8.4 L - ABG Interpretation ABG results: PT/INR, D-dimer PT 12.9 Seconds (9.4-12.1) H 07/21/18 05:40 - Impressions Impressions KUB X-Ray 07/21/18 13:17 IMPRESSION: Tip of the NG tube terminates over the 2nd portion of the duodenum. Recommend retracting 10-12 cm. The findings were sent to the Radiology Results Communication Center at 9:36 pm on 07/21/2018to be communicated to a licensed caregiver. D/ / Sylvain Payton / Sylvain Payton Interpreting Provider: Sylvain Payton - Attending Attestation I saw evaluated and examined this patient and my medical decision-making was reviewed with the Resident Physician, Karthikeyan Mcmahan . I agree with the documented findings, disposition and treatment plan as described except to any changes set forth below. We independently had [id number] contact with the patient. Patient is lying down in bed. Feels better compared to yesterday. Has NG tube in place. Drainage has decreased somewhat. Abdomen is less distended and less painful. Patient is also passing flatus and has had bowel movements. No episodes of vomiting. On exam, patient is awake, alert and oriented 3. Heart sounds are normal. Breath sounds are normal. Abdomen is soft, mildly distended. Bowel sounds are audible. No pedal edema. Small bowel obstruction: Appears to be improving. Follow surgery and GI marlon mmendations. Continue nothing by mouth and NG tube to low intermittent suction. Continue to monitor vital signs closely. Moderate risk for complications. Crohn's disease: Does not appear to be in a flareup. No indication for steroids or antibiotics. Essential hypertension: Patient is currently nothing by mouth. Will add intravenous medications if systolic blood pressure greater than 160. Blood pressure has been mostly well controlled. <Karthikeyan Mcmahan S - Last Filed: 07/22/18 10:16> (2) Crohn disease Qualifiers: Gastrointestinal tract location: unspecified location Digestive disease complication type: unspecified complication Qualified Code(s): K50.919 - C rohn's disease, unspecified, with unspecified complications (3) HTN (hypertension) Qualifiers: Hypertension type: essential hypertension Qualified Code(s): I10 - Essential (primary) hypertension (4) BPH (benign prostatic hyperplasia) Qualifiers: Lower urinary tract symptom presence: symptoms present Lower urinary tract symptom detail: unspecified Qualified Code(s): N40.1 - Benign prostatic hyperplasia with lower urinary tract symptoms (6) GERD (gastroesophageal reflux disease) Qualifiers: Esophagitis presence: esophagitis presence not specified Qualified Code(s): K21.9 - Gastro-esophageal reflux disease without esophagitis (7) Anemia Qualifiers: Anemia type: unspecified type Qualified Code(s): D64.9 - Anemia, unspecified <Ameda,Srujan - Last Filed: 07/22/18 13:41> (2) Crohn disease Qualifiers: Gastrointestinal tract location: unspecified location Digestive disease complication type: unspecified complication Qualified Code(s): K50.919 - Crohn's disease, unspecified, with unspecified complications (3) HTN (hypertension) Qualifiers: Hypertension type: essential hypertension Qualified Code(s): I10 - Essential (primary) hypertension (4) BPH (benign prostatic hyperplasia) Qualifiers: Lower urinary tract symptom presence: symptoms present Lower urinary tract symptom detail: unspecified Qualified Code(s): N40.1 - Benign prostatic hyperplasia with lower urinary tract symptoms (6) GERD (gastroesophageal reflux disease) Qualifiers: Esophagitis presence: esophagitis presence not specified Qualified Code(s): K21.9 - Gastro-esophageal reflux disease without esophagitis (7) Anemia Qualifiers: Anemia type: unspecified type Qualified Code(s): D64.9 - Anemia, unspecified
[2018-07-22] MEDS: Pantoprazole 40 MG VIAL IVP SCH (09:54)
[2018-07-22] MEDS ORDERED: Potassium Chloride 20 MEQ, Lidocaine 1% 2 ML in D5% in Water 250 ML IVPB ONE (14:17)
--- NOTE | 2018-07-22 15:20 | Gastroenterology Progress Note ---
<AngelicaDoug - Last Filed: 07/22/18 15:18> Date of Encounter: 07/22/18 Time of Encounter: 15:19 - Assessment and plan (1) Small bowel obstruction Current Visit: Yes Status: Acute Assessment and plan: Clinically improved. NG tube has been removed and is tolerating clear liquids well. Per discussion with radiology patient appears to have a stenotic area at the ileocolonic anastomosis. Does not appear related to active Crohn's disease. Patient has had this area dilated the past. We will discuss with general surgery as patient will likely need endoscopic dilatation of this area, possibly during this hospitalization. Keep clear liquid diet for now and monitor symptoms for recurrence. (2) Crohn disease Current Visit: No Status: Chronic Assessment and plan: History of Crohn's disease status post 2 resections in 1979 and 1987. Overall patient seems relatively asymptomatic at baseline with just mild loose stools. Has never been on any therapy for Crohn's disease other than Imodium. Unlikely that a Crohn's disease flare is causing the patient's small bowel obstruction as discussed above. No indication for acute treatment with steroids. Qualifiers: Gastrointestinal tract location: unspecified location Digestive disease complication type: unspecified complication Qualified Code(s): K50.919 - Crohn's disease, unspecified, with unspecified complications - Time Spent With Patient Total time spent is greater than 50% in coordination of care (as documented) at patient's floor/unit and/or counseling patient: - Subjective Interval history: Patient seen and examined at bedside. Patient states that he feels better today. He is hungry. His abdominal pain is greatly decreased. He reports he had a bowel movement today and continues to pass gas. Denies nausea, vomiting. He is tolerating clear liquids well. - Constitutional Vitals: Temp Pulse Resp BP Pulse Ox 98.4 F 72 15 149/86 95 07/22/18 14:29 07/22/18 14:29 07/22/18 14:29 07/22/18 14:29 07/22/18 14:29 General appearance: Present: A&O X 3, pleasant, no acute distress, answers questions appropriately - Respiratory Respiratory exam: Present: CTAB. Absent: rales, rhonchi, wheezes - Cardiovascular Cardiovascular exam: Present: RRR. Absent: gallop, rubs, systolic murmur - GI/Abdominal GI/Abdominal exam: Present: distended (Mild), normal bowel sounds, soft, tenderness (Mild periumbilical). Absent: rigid, no peritoneal signs - Extremities Exam Extremities exam: Present: warm. Absent: pedal edema, tenderness Results - Labs CBC & Chem 7: 07/22/18 06:13 07/22/18 06:13 Labs: Last Result Calcium 8.4 mg/dL (8.6-10.3) L 07/22/18 06:13 Iron 27 mcg/dL (65-175) L 07/22/18 06:13 % Saturation 6 % (20-55) L 07/22/18 06:13 Transferrin 314 mg/dL (203-362) 07/22/18 06:13 Ferritin 12 ng/mL (20-250) L 07/22/18 06:13 Troponin I < 0.03 ng/mL (< 0.04) 07/20/18 20:43 Vitamin B12 330 pg/mL (250-1100) 07/22/18 06:13 Entire Visit Hgb 9.1 g/dL (12.9-16.9) L 07/22/18 06:13 Hct 30.4 % (37.5-50.1) L 07/22/18 06:13 PT 12.9 Seconds (9.4-12.1) H 07/21/18 05:40 Ferritin 12 ng/mL (20-250) L 07/22/18 06:13 Total Bilirubin 1.2 mg/dL (0.3-1.0) H 07/20/18 20:43 AST 61 Units/L (13-39) H 07/20/18 20:43 ALT 47 Units/L (7-52) 07/20/18 20:43 Amylase 38 Units/L (29-103) 07/20/18 20:43 Lipase 5 Units/L (11-82) L 07/20/18 20:43 - ABG ABG results: PT/INR, D-dimer PT 12.9 Seconds (9.4-12.1) H 07/21/18 05:40 - Impressions Impressions KUB X-Ray 07/21/18 13:17 IMPRESSION: Tip of the NG tube terminates over the 2nd portion of the duodenum. Recommend retracting 10-12 cm. The findings were sent to the Radiology Results Communication Center at 9:36 pm on 07/21/2018to be communicated to a licensed caregiver. D/ / Sylvain Payton / Sylvain Payton Interpreting Provider: Sylvain Payton Consult Discharge Plan - Plan Referrals: Jeremy Gruber DO [Partnered Physician] - 08/05/18 1:00 pm (New get e stablished appointment. If you need to cancel please give a 24 hour notice. Thank you) <Alton Sue - Last Filed: 07/22/18 16:56> Date of Encounter: 07/22/18 - Time Spent With Patient Total time spent is greater than 50% in coordination of care (as documented) at patient's floor/unit and/or counseling patient: - Constitutional Vitals: Temp Pulse Resp BP Pulse Ox 98.4 F 72 15 149/86 95 07/22/18 14:29 07/22/18 14:29 07/22/18 14:29 07/22/18 14:29 07/22/18 14:29 Results - Labs CBC & Chem 7: 07/22/18 06:13 07/22/18 06:13 Labs: Last Result Calcium 8.4 mg/dL (8.6-10.3) L 07/22/18 06:13 Iron 27 mcg/dL (65-175) L 07/22/18 06:13 % Saturation 6 % (20-55) L 07/22/18 06:13 Transferrin 314 mg/dL (203-362) 07/22/18 06:13 Ferritin 12 ng/mL (20-250) L 07/22/18 06:13 Troponin I < 0.03 ng/mL (< 0.04) 07/20/18 20:43 Vitamin B12 330 pg/mL (250-1100) 07/22/18 06:13 Entire Visit Hgb 9.1 g/dL (12.9-16.9) L 07/22/18 06:13 Hct 30.4 % (37.5-50.1) L 07/22/18 06:13 PT 12.9 Seconds (9.4-12.1) H 07/21/18 05:40 Ferritin 12 ng/mL (20-250) L 07/22/18 06:13 Total Bilirubin 1.2 mg/dL (0.3-1.0) H 07/20/18 20:43 AST 61 Units/L (13-39) H 07/20/18 20:43 ALT 47 Units/L (7-52) 07/20/18 20:43 Amylase 38 Units/L (29-103) 07/20/18 20:43 Lipase 5 Units/L (11-82) L 07/20/18 20:43 - ABG ABG results: PT/INR, D-dimer PT 12.9 Seconds (9.4-12.1) H 07/21/18 05:40 - Impressions Impressions KUB X-Ray 07/21/18 13:17 IMPRESSION: Tip of the NG tube terminates over the 2nd portion of the duodenum. Recommend retracting 10-12 cm. The findings were sent to the Radiology Results Communication Center at 9:36 pm on 07/21/2018to be communicated to a licensed caregiver. D/ / Sylvain Payton / Sylvain Payton Interpreting Provider: Sylvain Payton - Attending Attestation I examined this patient and my medical decision-making was reviewed with the Resident Physician. I agree with the documented findings, disposition and treatment plan as described except to the extent set forth below. Patient seen along with Dr Dominguez. Currently NG tube is out patient is tolerating clear liquid and he is moving his bowels. On examination abdomen is soft. Assessment: Patient with Crohn disease now with bowel obstruction due to stricture at the ileocolonic anastomosis. Discussed with Dr. Flynn. Recommendation: Patient will have colonoscopy with possible dilation of the stricture if no improvement then he will need surgery
--- NOTE | 2018-07-22 16:00 | General Surgery Progress Note ---
<Lazaro Buchanan S - Last Filed: 07/22/18 17:24> Date of Encounter: 07/22/18 Time of Encounter: 09:30 - Assessment and Plan (1) Small bowel obstruction Status: Acute CT (07/20) shows dilated fluid-filled loops of small bowel, mild wall thickening of distal ileum, concerning for SBO Pulled patient's NGT Started clear liquid diet, please keep patient on clears for now in case GI wants to do scope and dilation for stenosis of iliocolonic anastomosis in next 24-48 hrs WBC 7.1 > 4.8 Lactic acid 1.1 IV toradol and SL oxycodone for pain Zofran and phenergan for nausea Protonix for GI prophylaxis IVF 125 ml/hr (2) Crohn disease Status: Chronic Management per GI S/p 2 bowel resections >30 years ago Does not believe this is an acute flare of Crohn's Patient has stenosis at iliocolonic anastamosis with previous dilations, may r equire another dilation this admission Qualifiers: Gastrointestinal tract location: unspecified location Digestive disease complication type: unspecified complication Qualified Code(s): K50.919 - Crohn's disease, unspecified, with unspecified complications (3) HTN (hypertension) Status: Chronic Management per primary team Qualifiers: Hypertension type: essential hypertension Qualified Code(s): I10 - Essential (primary) hypertension Subjective Patient reports: no new complaints, feels better, pain is less, flatus, bowel movement Narrative: Patient doing well today. He denies abdominal pain, nausea, vomiting, CP, SOB, fevers/chills. Having BMs. Objective Vital Signs - Last 8 Hours Temp Pulse Resp BP Pulse Ox 07/22/18 14:29 98.4 F 72 15 149/86 95 07/22/18 10:34 98.0 F 75 15 141/81 95 Intake and Output 07/21/18 07/22/18 07/22/18 23:59 07:59 15:59 Intake Total 1000 / 1000 1000 / 1000 1000 / 1000 Output Total 450 / 450 400 / 400 275 / 275 Balance 550 / 550 600 / 600 725 / 725 Intake: IV Fluids 1000 / 1000 1000 / 1000 1000 / 1000 Lactated Ringers 1,000 ML @ 125 1000 / 1000 1000 / 1000 1000 / 1000 mls/hr IVC .Q8H MATTHEW Rx#: [id number] Oral 0 / 0 0 / 0 0 / 0 Output: Urine 450 / 450 150 / 150 200 / 200 Gastric Drainage 250 / 250 75 / 75 Other: Meal Dinner NPO NPO Percent of Meal Consumed 0% Stool Size Small Small Stool Consistency formed loose Stool Color Brown Brown # Voids 1 # Bowel Movements 1 1 Weight 71.5 kg Blood Glucose* 91 71 75 Patient Weight 07/22/18 23:59 Weight 71.5 kg - General physical appearance well developed - Respiratory normal expansion, normal respiratory effort - Cardiovascular Cardiovascular exam: Present: RRR - Abdomen Abdomen: Present: bowel sounds present, soft, non tender, surgical scars - Integumentary no rash - Psychiatric oriented to time, oriented to person, oriented to place - Labs 07/22/18 06:13 07/22/18 06:13 Diabetes panel 07/22/18 Range/Units 06:13 Sodium 143 (136-145) mEq/L Potassium 3.3 L (3.5-5.1) mEq/L Chloride 107 (98-107) mEq/L Carbon Dioxide 25 (23-29) mEq/L BUN 15 (8-23) mg/dL Creatinine 0.91 (0.70-1.30) mg/dL Glucose 80 (70-105) mg/dL Calcium 8.4 L (8.6-10.3) mg/dL Calcium panel 07/22/18 Range/Units 06:13 Calcium 8.4 L (8.6-10.3) mg/dL Pituitary panel 07/22/18 Range/Units 06:13 Sodium 143 (136-145) mEq/L Potassium 3.3 L (3.5-5.1) mEq/L Chloride 107 (98-107) mEq/L Carbon Dioxide 25 (23-29) mEq/L BUN 15 (8-23) mg/dL Creatinine 0.91 (0.70-1.30) mg/dL Glucose 80 (70-105) mg/dL Calcium 8.4 L (8.6-10.3) mg/dL Adrenal panel 07/22/18 Range/Units 06:13 Sodium 143 (136-145) mEq/L Potassium 3.3 L (3.5-5.1) mEq/L Chloride 107 (98-107) mEq/L Carbon Dioxide 25 (23-29) mEq/L BUN 15 (8-23) mg/dL Creatinine 0.91 (0.70-1.30) mg/dL Glucose 80 (70-105) mg/dL Calcium 8.4 L (8.6-10.3) mg/dL Consult Discharge Plan - Plan Instructions: Gastritis (GEN) Additional Instructions: Take all medications as prescribed Follow up with GI as directed Referrals: [facility] [Provider Group] (2 weeks) Jeremy Gruber DO [Partnered Physician] - 08/05/18 1:00 pm (New get established appointment. If you need to cancel please give a 24 hour notice. Thank you) Prescriptions: Pantoprazole Sodium [Protonix] 40 mg PO BID 30 Days #60 tablet. RX: Pantoprazole Sodium [Protonix] 40 mg PO BID 30 Days #60 tablet. RX: predniSONE [PredniSONE] 40 mg PO DAILY 14 Days #14 tablet predniSONE [PredniSONE] 40 mg PO DAILY 14 Days #14 tablet <Elbert Flynn - Last Filed: 07/25/18 13:02> Date of Encounter: 07/25/18 - Assessment and Plan (1) Crohn disease Status: Chronic Qualifiers: Gastrointestinal tract location: unspecified location Digestive disease complication type: unspecified complication Qualified Code(s): K50.919 - Crohn's disease, unspecified, with unspecified complications (2) Small bowel obstruction Status: Acute Plan for colonoscopy by Dr. Sue. He is going to attempt to dilate the ileocolonic anastomosis. I will follow as needed. Objective - Labs 07/24/18 04:58 07/24/18 04:58
--- NOTE | 2018-07-22 20:03 | Electrocardiograph Report ---
[address] [place] [address] Test Date: 2018-07-20 Pat Name: Dexter Castro Department: [id number] Room: 3A25 Gender: M [employer]: : 1945 Requested By: Rishabh Bliss Order Number: [id number] Reading MD: Holly Stern Measurements Intervals Comfort Rate: 102 P: 46 HI: 161 QRS: 23 QRSD: 78 T: -22 QT: 327 QTc: 426 Interpretive Statements Sinus tachycardia Nonspecific repol abnormality, diffuse leads Electronically Signed On 07-22-2018 20:01:37 EST by Holly Setrn
[2018-07-23] MEDS: Ringers Solution, Lactated 1,000 ML IVC SCH ×2 (04:40→18:24)
[2018-07-23] MEDS: *HR* Heparin 5,000 UNIT/ML VIAL SQ SCH ×3 (04:43→21:46)
[2018-07-23 05:17] LABS: Mean Corpuscular Volume 70.5 fL (83.0-100.0); Red Cell Distribution Width 17.4 % (11.5-14.5)
[2018-07-23 05:19] LABS: Basophils % 0.5 %; Eosinophils # 0.1 K/mcL (0.0-0.6); Eosinophils % 1.4 %; Hematocrit 28.9 % (37.5-50.1); Hemoglobin 8.7 g/dL (12.9-16.9); Immature Platelets 2.6 % (1.1-6.1); Lymphocytes # 0.7 K/mcL (0.6-4.6); Lymphocytes % 16.9 %; Mean Corpuscular HGB Conc 30.1 g/dL (31.6-35.5); Mean Corpuscular Hemoglobin 21.2 pg (28.0-33.3); Monocytes # 0.6 K/mcL (0.0-1.3); Neutrophils # 2.8 K/mcL (1.6-8.9); Platelet Count 157 K/mcL (140-400); Segmented Neutrophils % 67.2 %
[2018-07-23 05:32] LABS: BUN/Creatinine Ratio 12 (6-26); Blood Urea Nitrogen 10 mg/dL (8-23); Calcium 8.4 mg/dL (8.6-10.3); Carbon Dioxide 26 mEq/L (23-29); Chloride 106 mEq/L (98-107); Glucose 92 mg/dL (70-105); Osmolality,Calculated 291 (280-300); Potassium 3.2 mEq/L (3.5-5.1); Sodium 141 mEq/L (136-145); eGFR For Non-African Americans > 60 (> 60)
[2018-07-23 05:39] LABS: Platelet Estimate Normal (Normal)
[2018-07-23] MEDS ORDERED: Potassium Chloride 40 MEQ, Lidocaine 1% 2 ML in D5% in Water 500 ML IVPB ONE (08:14)
[2018-07-23] MEDS: Pantoprazole 40 MG VIAL IVP SCH (08:58)
--- NOTE | 2018-07-23 10:02 | Internal Med Progress Note ---
<Karthikeyan Mcmahan S - Last Filed: 07/23/18 10:00> Hospitalist Progress Note - Encounter Date of Encounter: 07/23/18 Time of Encounter: 10:00 - Subjective Interval History: Pt is seen at bedside. He is a 72yo male with a PMH of Chron's disease s/p bowel resection, HTN, and BPH. He presented to the ER on 07/20 with the cc of abdomina l pain starting Saturday. He states that the pain was in the bottom of his belly, in his periumbilical region and is assoc with nausea. He had a few episodes of vomiting, the last one over 24hrs ago. He states he is still able to gas gas and burp. He is having bowel movements still. In the ER, he had a CT scan of the abdomen which showed signs of SBO and was admitted for further workup. He states that this was the first time he has ever had a small bowel obstruction. Currently he is resting comfortably in bed. He has no acute complaints or concerns. His abdominal pain has improved overall - pt denies any chest pain, SOB, N/V/D - denies any episodes of vomiting in the last 24hrs - had multiple bowel movemnts from the prep - pt is to get EGD / colonoscopy today from GI - Exam Vitals: Temp Pulse Resp BP Pulse Ox 98.4 F 53 15 129/71 95 07/23/18 06:22 07/23/18 06:22 07/23/18 06:22 07/23/18 06:22 07/23/18 06:22 Exam: General: Well developed lying comfortable in bed in NAD HEENT: Moist mucous membranes. No conjunctivae pallor. Normocephalic, atraumatic Neck: No lymphadenopathy. No JVD. No carotid bruits. No palpable thyroid. Chest: Normal thoracic expansion. Normal breath sounds. Clear to auscultation. Heart: Normal S1 & S2; rhythmic. No rubs or murmurs. Clear to audsculatation. Abdomen: Non-distended, soft and minimally tender to palpation in the periumbilical area. Midline surgical incision scar noted x 2. No Rebound or guarding. Extremities: No clubbing, cyanosis or edema. No calf tenderness. Normal distal pulses. Neurological: Awake, alert and oriented to person, place and time. No focal deficits. Psych: Affect and mood appropriate. - Assessment and Plan (1) Crohn disease Current Visit: No Status: Chronic Assessment and Plan: Pt has hx of Chron's disease, diagnosed in the - has had hx of surgery x 2 w/ segments of colon removed - not on any immunomodulating rx (2) Small bowel obstruction Current Visit: Yes Status: Acute Assessment and Plan: Pt presented after 2 day hx of increasing periumbilical abd pain - has hx of Chron's disease and has had abdominal surgery x 2 - SBO most likely secondary to adhesions from multiple abdominal sx CT scan on admission showed SBO No rebound/guarding, no peritoneal signs Pt reports passing gas/belching and having a bowel movement this morning KUB (07/22) - Tip of the NG tube terminates over the 2nd portion of the duodenum. - Recommend retracting 10-12 cm. NG tube removed 07/22 as per surgery Plan: - Surgery consulted will progress diet as tolerated once secretions in NG tube are clear Surgery not recommending urgent surgical intervention - GI consulted they state that this SBO is unlikely due to his chron's disease recommend colonosopcy with planned dilation of ileocolonic anastamosis NPO currently Pt to have EGD and colonoscopy today - pain control as needed - NG tube in place , intermittent suction - 125cc/hr Lactated Ringers - IVP phenergan prn nausea - dispo: resolution of SBO, tolerating of oral intake (3) HTN (hypertension) Current Visit: No Status: Chronic Assessment and Plan: BP 129/71 - chronic - well controlled (4) BPH (benign prostatic hyperplasia) Current Visit: No Status: Chronic Assessment and Plan: On tamsulosin (5) DVT prophylaxis Current Visit: Yes Status: Acute Assessment and Plan: Heparin sq (6) GERD (gastroesophageal reflux disease) Current Visit: No Status: Chronic Assessment and Plan: On Prilosec (7) Anemia Current Visit: Yes Status: Acute Assessment and Plan: Chronic - at baseline - hemoglobin this morning 8.7 - likely nutritional vs poor absorption as Chron's can affct duodenom where iron is absorbed MCV is 71.5 iron 27, fe sat 6%, transferrin 314, ferritin 12 B12 330 - Time Spent with Patient Total time spent is greater than 50% in coordination of care (as documented) at patient's floor/unit and/or counseling patient: less than 15 minutes Plan of Care Discussed with: patient Internal Medicine: Result - Labs CBC & Chem 7: 07/23/18 04:34 07/23/18 04:34 Labs: Short CBC 07/23/18 Range/Units 04:34 WBC 4.2 L (4.3-11.1) K/mcL Hgb 8.7 L (12.9-16.9) g/dL Hct 28.9 L (37.5-50.1) % Plt Count 157 (140-400) K/mcL Neutrophils # 2.8 (1.6-8.9) K/mcL BMP 07/23/18 04:34 Sodium 141 Potassium 3.2 L Chloride 106 Carbon Dioxide 26 BUN 10 Creatinine 0.83 Glucose 92 Calcium 8.4 L - ABG Interpretation ABG results: PT/INR, D-dimer PT 12.9 Seconds (9.4-12.1) H 07/21/18 05:40 Consult Discharge Plan - Plan Referrals: Jeremy Gruber DO [Partnered Physician] - 08/05/18 1:00 pm (New get established appointment. If you need to cancel please give a 24 hour notice. Thank you) <David Richardson - Last Filed: 07/23/18 14:51> Hospitalist Progress Note - Encounter Date of Encounter: 07/23/18 Time of Encounter: 14:45 - Exam Vitals: Temp Pulse Resp BP Pulse Ox 98.2 F 80 15 160/77 96 07/23/18 13:34 07/23/18 13:34 07/23/18 13:34 07/23/18 13:34 07/23/18 13:34 - Assessment and Plan (1) Crohn disease Current Visit: No Status: Chronic (2) Small bowel obstruction Current Visit: Yes Status: Acute (3) HTN (hypertension) Current Visit: No Status: Chronic (4) BPH (benign prostatic hyperplasia) Current Visit: No Status: Chronic (5) DVT prophylaxis Current Visit: Yes Status: Acute (6) GERD (gastroesophageal reflux disease) Current Visit: No Status: Chronic (7) Anemia Current Visit: Yes Status: Acute - Time Spent with Patient Total time spent is greater than 50% in coordination of care (as documented) at patient's floor/unit and/or counseling patient: Internal Medicine: Result - Labs CBC & Chem 7: 11/14/18 04:34 07/23/18 04:34 Labs: Short CBC 07/23/18 Range/Units 04:34 WBC 4.2 L (4.3-11.1) K/mcL Hgb 8.7 L (12.9-16.9) g/dL Hct 28.9 L (37.5-50.1) % Plt Count 157 (140-400) K/mcL Neutrophils # 2.8 (1.6-8.9) K/mcL BMP 07/23/18 04:34 Sodium 141 Potassium 3.2 L Chloride 106 Carbon Dioxide 26 BUN 10 Creatinine 0.83 Glucose 92 Calcium 8.4 L - ABG Interpretation ABG results: PT/INR, D-dimer PT 12.9 Seconds (9.4-12.1) H 07/21/18 05:40 - Attending Attestation I saw evaluated and examined this patient and my medical decision-making was reviewed with the Resident Physician, Karthikeyan Mcmahan . I agree with the documented findings, disposition and treatment plan as described except to any changes set forth below. We independently had [id number] contact with the patient. Patient is feeling much better today. NG tube has been removed. Patient has been having bowel movements and passing flatus. Abdomen less distended and he denies any pain. No new episodes of emesis. The bowel prep yesterday for colonoscopy scheduled for today. On exam, patient is awake, alert and oriented 3. Heart sounds are normal. Breath sounds are normal. Abdomen is soft, nondistended nontender. Bowel sounds are audible. No pedal edema. Small bowel obstruction: Appears to have resolved now. Due to stenosis at ileocolonic anastomosis site. Plan for colonoscopy and does patient today. Patient also is to undergo upper GI endoscopy at the same time for evaluation of anemia. Moderate risk for complications. Anemia: Hemoglobin 8.7 today. We will monitor blood counts closely. Upper GI endoscopy plan for today. Crohn's disease: No signs of exacerbation. Essential hypertension: Resume losartan once patient is able to eat. ____ <Karthikeyan Mcmahan - Last Filed: 07/23/18 10:00> (1) Crohn disease Qualifiers: Gastrointestinal tract location: unspecified location Digestive disease complication type: unspecified complication Qualified Code(s): K50.919 - Crohn's disease, unspecified, with unspecified complications (3) HTN (hypertension) Qualifiers: Hypertension type: essential hypertension Qualified Code(s): I10 - Essential (primary) hypertension (4) BPH (benign prostatic hyperplasia) Qualifiers: Lower urinary tract symptom presence: symptoms present Lower urinary tract symptom detail: unspecified Qualified Code(s): N40.1 - Benign prostatic hyperplasia with lower urinary tract symptoms (6) GERD (gastroesophageal reflux disease) Qualifiers: Esophagitis presence: esophagitis presence not specified Qualified Code(s): K21.9 - Gastro-esophageal reflux disease without esophagitis (7) Anemia Qualifiers: Anemia type: unspecified type Qualified Code(s): D64.9 - Anemia, unspecified <Ameda,Srujan - Last Filed: 07/23/18 14:51> (1) Crohn disease Qualifiers: Gastrointestinal tract location: unspecified location Digestive disease complication type: unspecified complication Qualified Code(s): K50.919 - Crohn's disease, unspecified, with unspecified complications (3) HTN (hypertension) Qualifiers: Hypertension type: essential hypertension Qualified Code(s): I10 - Essential (primary) hypertension (4) BPH (benign prostatic hyperplasia) Qualifiers: Lower urinary tract symptom presence: symptoms present Lower urinary tract symptom detail: unspecified Qualified Code(s): N40.1 - Benign prostatic hyperplasia with lower urinary tract symptoms (6) GERD (gastroesophageal reflux disease) Qualifiers: Esophagitis presence: esophagitis presence not specified Qualified Code(s): K21.9 - Gastro-esophageal reflux disease without esophagitis (7) Anemia Qualifiers: Anemia type: unspecified type Qualified Code(s): D64.9 - Anemia, unspecified
--- NOTE | 2018-07-23 12:56 | Anesthesia Evaluation PreOp ---
Date of Encounter: 07/23/18 - Past History Planned Operation: EGD, COLONOSCOPY Cardiac History: HTN Other Medical History: Renal (BPH), Other (CROHN'S DISEASE, SBO, ABD PAIN) Anesthesia History: No Prior Anesthetic Complications, Past Anesthesia (BOWEL RESECTION, GB, APPY, PERC NEPH) Alcohol Use: none Drug use: none Medications and Allergies Cholecalciferol (D-3) [Vitamin D] 2,000 unit PO DAILY 01/30/16 [History] Cyanocobalamin (Vitamin B-12) [Vitamin B-12] 1,000 mcg SL DAILY 01/30/16 [History] Finasteride [Proscar] 5 mg PO DAILY 01/30/16 [History] Losartan [Cozaar] 25 mg PO DAILY 01/30/16 [History] Omeprazole [PriLOSEC] 40 mg PO DAILY 01/30/16 [History] Potassium Chloride [K-Tab ER] 20 meq PO TID 01/30/16 [History] Clotrimazole 1% CRM [Lotrimin 1%] 1 appl TP BID 02/09/16 [History] Loperamide HCl [Imodium A-D] 2 mg PO BID 02/09/16 [History] Acetaminophen [Tylenol] 500 mg PO Q6HR PRN #20 tablet 07/20/18 [Rx] Tamsulosin [Flomax] 0.4 mg PO BID 07/22/18 [History] Allergy/AdvReac Type Severity Reaction Status Date / Time No Known Allergies Allergy Verified 07/20/18 20:13 - Meds/Allergy Pre-op Review Medications Reviewed: Yes Allergies Reviewed: Yes Anesthesia Results - Labs 07/23/18 04:34 07/23/18 04:34 Laboratory Last Values WBC 4.2 K/mcL (4.3-11.1) L 07/23/18 04:34 RBC 4.10 M/mcL (4.19-5.50) L 07/23/18 04:34 Hgb 8.7 g/dL (12.9-16.9) L 07/23/18 04:34 Hct 28.9 % (37.5-50.1) L 07/23/18 04:34 MCV 70.5 fL (83.0-100.0) L 07/23/18 04:34 MCH 21.2 pg (28.0-33.3) L 07/23/18 04:34 MCHC 30.1 g/dL (31.6-35.5) L 07/23/18 04:34 RDW 17.4 % (11.5-14.5) H 07/23/18 04:34 Plt Count 157 K/mcL (140-400) 07/23/18 04:34 MPV 10.0 fL (9.4-12.4) 07/23/18 04:34 Immature Gran % 0.0 % (0-4) 07/23/18 04:34 Seg Neutrophils % 67.2 % 07/23/18 04:34 Lymphocytes % 16.9 % 07/23/18 04:34 Monocytes % 14.0 % 07/23/18 04:34 Eosinophils % 1.4 % 07/23/18 04:34 Basophils % 0.5 % 07/23/18 04:34 Neutrophils # 2.8 K/mcL (1.6-8.9) 07/23/18 04:34 Lymphocytes # 0.7 K/mcL (0.6-4.6) 07/23/18 04:34 Monocytes # 0.6 K/mcL (0.0-1.3) 07/23/18 04:34 Eosinophils # 0.1 K/mcL (0.0-0.6) 07/23/18 04:34 Basophils # 0.0 K/mcL (0.0-0.2) 07/23/18 04:34 Platelet Estimate Normal (Normal) 07/23/18 04:34 Immature Plt Fraction 2.6 % (1.1-6.1) 07/23/18 04:34 Polychromasia 1+ (Not Present) A 07/21/18 05:40 Hypochromasia Present (Not Present) A 07/21/18 05:40 Poikilocytosis 1+ (Not Present) A 07/21/18 05:40 Anisocytosis 1+ (Not Present) A 07/20/18 20:43 Microcytosis Present (Not Present) A 07/21/18 05:40 PT 12.9 Seconds (9.4-12.1) H 07/21/18 05:40 INR 1.1 07/21/18 05:40 APTT 28.7 Seconds (26.0-36.0) 07/21/18 05:40 Sodium 141 mEq/L (136-145) 07/23/18 04:34 Potassium 3.2 mEq/L (3.5-5.1) L 07/23/18 04:34 Chloride 106 mEq/L (98-107) 07/23/18 04:34 Carbon Dioxide 26 mEq/L (23-29) 07/23/18 04:34 BUN 10 mg/dL (8-23) 07/23/18 04:34 Creatinine 0.83 mg/dL (0.70-1.30) 07/23/18 04:34 Est GFR ( Amer) > 60 (> 60) 07/23/18 04:34 Est GFR (Non-Af Amer) > 60 (> 60) 07/23/18 04:34 BUN/Creatinine Ratio 12 (6-26) 07/23/18 04:34 Glucose 92 mg/dL (70-105) 07/23/18 04:34 POC Glucose 75 mg/dL (70-99) 07/22/18 11:00 Calculated Osmolality 291 (280-300) 07/23/18 04:34 Lactic Acid 1.1 mmol/L (0.5-2.2) 07/20/18 21:15 Calcium 8.4 mg/dL (8.6-10.3) L 07/23/18 04:34 Magnesium 1.6 mg/dL (1.6-2.6) 07/20/18 20:43 Iron 27 mcg/dL (65-175) L 07/22/18 06:13 % Saturation 6 % (20-55) L 07/22/18 06:13 Transferrin 314 mg/dL (203-362) 07/22/18 06:13 Ferritin 12 ng/mL (20-250) L 07/22/18 06:13 Total Bilirubin 1.2 mg/dL (0.3-1.0) H 07/20/18 20:43 Direct Bilirubin 0.3 mg/dL (0.0-0.2) H 07/20/18 20:43 Indirect Bilirubin 0.9 mg/dL (0.0-1.2) 07/20/18 20:43 AST 61 Units/L (13-39) H 07/20/18 20:43 ALT 47 Units/L (7-52) 07/20/18 20:43 Alkaline Phosphatase 75 Units/L (34-104) 07/20/18 20:43 Troponin I < 0.03 ng/mL (< 0.04) 07/20/18 20:43 Serum Total Protein 6.8 g/dL (6.4-8.9) 07/20/18 20:43 Albumin 4.3 g/dL (3.5-5.7) 07/20/18 20:43 Globulin 2.5 g/dL (2.4-3.5) 07/20/18 20:43 Albumin/Globulin Ratio 1.7 (1.1-2.2) 07/20/18 20:43 Amylase 38 Units/L (29-103) 07/20/18 20:43 Lipase 5 Units/L (11-82) L 07/20/18 20:43 Vitamin B12 330 pg/mL (250-1100) 07/22/18 06:13 Urine Color Dark Yellow (Yellow) 07/20/18 21:05 Urine Clarity Clear (Clear) 07/20/18 21:05 Urine pH 5.5 pH Units (5.0-8.0) 07/20/18 21:05 Ur Specific [place] > 1.030 (1.010-1.025) H 07/20/18 21:05 Urine Protein 30 mg/dL (Neg-Trace) H 07/20/18 21:05 Urine Glucose (UA) Normal mg/dL (Normal) 07/20/18 21:05 Urine Ketones Trace mg/dL (Negative) H 07/20/18 21:05 Urine Blood Negative (Negative) 07/20/18 21:05 Urine Nitrite Negative (Negative) 07/20/18 21:05 Urine Bilirubin Small (Negative) H 07/20/18 21:05 Urine Urobilinogen Normal mg/dL (Normal) 07/20/18 21:05 Ur Leukocyte Esterase Negative (Negative) 07/20/18 21:05 Urine Microscopic RBC 5-15 per hpf (0-3) H 07/20/18 21:05 Urine Microscopic WBC 3-5 per hpf (0-3) H 07/20/18 21:05 Ur Squamous Epith Cells Moderate per lpf (None-Few) H 07/20/18 21:05 Urine Bacteria None Seen per hpf (None-Few) 07/20/18 21:05 Hyaline Casts None Seen per lpf (None-Few) 07/20/18 21:05 Ur Culture Indicated? NO (NO) 07/20/18 21:05 Anesthesia Exam Vital Signs/O2 Sat/Glucose, Most Recent Temp Pulse Resp BP Pulse Ox 98.0 F 57 16 134/77 92 07/23/18 10:02 07/23/18 10:02 07/23/18 10:02 07/23/18 10:02 07/23/18 10:02 Blood Glucose* 97 Weight: 72 kg NPO (# of Hours): 8 - Cardiac Rhythm: Regular - Pulmonary Breath Sounds: bilateral Clear Respiratory Effort: Symmetrical - Additional Findings Active Medications Heparin Sodium (Porcine) (Heparin) 5,000 unit SQ Q8HCO MATTHEW Stop: 01/20/19 06:01 Last Admin: 07/23/18 04:43 Dose: Not Given Lactated Ringer's (Lactated Ringers) 1,000 mls @ 125 mls/hr IVC .Q8H MATTHEW Stop: 01/19/19 23:31 Last Admin: 07/23/18 04:40 Dose: 125 mls/hr Ketorolac Tromethamine (Toradol) 30 mg IVP Q6HR PRN PRN Reason: mild to moderate pain Stop: 07/25/18 23:54 Last Admin: 07/22/18 15:37 Dose: 30 mg Multi-Ingredient Mucositis [place] (Chloraseptic) 2 spray MM QID PRN PRN Reason: Sore Throat Stop: 01/20/19 15:48 Naloxone HCl (Narcan) 0.4 mg IVP Q2MIN PRN PRN Reason: SEE COMMENTS Stop: 01/19/19 23:54 Ondansetron HCl (Zofran) 4 mg IVP Q6HR PRN; Protocol PRN Reason: Nausea And Vomiting Stop: 01/20/19 00:03 Oxycodone HCl (Oxycodone Oral Conc) 5 mg SL Q4H PRN; Protocol PRN Reason: mild to moderate pain Stop: 01/19/19 23:54 Last Admin: 07/22/18 06:02 Dose: 5 mg Oxycodone HCl (Oxycodone Oral Conc) 10 mg SL Q4H PRN; Protocol PRN Reason: Severe Pain Stop: 01/19/19 23:54 Pantoprazole Sodium (Protonix) 40 mg IVP DAILY MATTHEW Stop: 01/20/19 12:31 Last Admin: 07/23/18 08:58 Dose: 40 mg Promethazine HCl (Phenergan) 12.5 mg IVP Q4HR PRN PRN Reason: Nausea And Vomiting Stop: 01/20/19 00:03 MAR Administrations Potassium Chloride 40 meq/ (Lidocaine 2 ml/ Dextrose) 522 mls @ 130.5 mls/hr IVPB ONCE ONE Stop: 07/23/18 12:13 Last Admin: 07/23/18 09:22 Dose: 130.5 mls/hr Anesthesia Assess/Plan ASA Score: 3 Monitoring Plan: Standard Monitors Recovery Plan: Other (PHASE 2 TO FLOOR) Anes Supervising Prov Stmt: Patient informed and consented. Risks, benefits, and alternatives discussed. Patient wishes to proceed.
--- NOTE | 2018-07-23 16:15 | Event Note ---
<Lazaro Buchanan S - Last Filed: 07/23/18 17:09> Date of Encounter: 07/23/18 Time of Encounter: 10:00 Patient doing very well this morning. He admits to bowel movements. He denies abdominal pain, nausea, vomiting, fevers/chills, SOB, CP. Abdomen is soft and non-tender to palpation. Small bowel obstruction appears to have resolved. Surgery will sign off now, thank you for the consult. <Elbert Flynn E - Last Filed: 07/25/18 09:00> Date of Encounter: 07/25/18
[2018-07-23] MEDS ORDERED: *HR* Midazolam HCl 5 MG/5 ML VIAL IVP ONE ×2 (16:59→17:10)
[2018-07-23] MEDS ORDERED: *HR* FentaNYL (PF) 100 MCG/2 ML VIAL ONE (17:00)
[2018-07-23] MEDS ORDERED: Simethicone 40 MG/0.6 ML MLS IR ONE (17:10)
[2018-07-23] MEDS ORDERED: *HR* FentaNYL (PF) 100 MCG/2 ML VIAL IVP ONE (17:10)
[2018-07-23] MEDS ORDERED: Tetracaine/Benzocaine/Butamben 1 SPRAY AEROSOL MM ONE (17:10)
--- NOTE | 2018-07-23 17:12 | Pre-Sedation Evaluation ---
Pre-sedation evaluation - Pre-sedation checklist Date of procedure: 07/23/18 Procedure: EGD/COLONOSCOPY Recent Vitals: Last Vital Signs Temp 98.2 F 07/23/18 17:04 Pulse 80 07/23/18 17:04 Resp 16 07/23/18 17:04 BP 162/85 07/23/18 17:04 Pulse Ox 97 07/23/18 17:04 H&P (including ROS) documented in medical record: Yes Previous reaction to sedatives/anesthetics: No Dietary Status: NPO after Midnight Dentition: No loose teeth or bridges ASA Classification *see protocol: CLASS III-Severe systemic disease Plan of Care: Pt appropriate candidate for procedure/moderate/conscious sedation, Risks/benefits of procedure/sedation discussed w/ patient/family
[2018-07-23] MEDS: methylPREDNISolone 125 MG/2 ML VIAL IVP SCH (18:40)
[2018-07-24] MEDS: Ringers Solution, Lactated 1,000 ML IVC SCH (02:51)
[2018-07-24] MEDS: *HR* Heparin 5,000 UNIT/ML VIAL SQ SCH (06:01)
[2018-07-24 06:34] LABS: Hematocrit 32.8 % (37.5-50.1); Hemoglobin 9.6 g/dL (12.9-16.9); Immature Granulocytes % 0.3 % (0-4); Lymphocytes # 0.3 K/mcL (0.6-4.6); Lymphocytes % 9.2 %; Mean Corpuscular HGB Conc 29.3 g/dL (31.6-35.5); Mean Corpuscular Hemoglobin 21.2 pg (28.0-33.3); Mean Corpuscular Volume 72.6 fL (83.0-100.0); Mean Platelet Volume 10.8 fL (9.4-12.4); Monocytes # 0.1 K/mcL (0.0-1.3); Monocytes % 3.6 %; Neutrophils # 2.7 K/mcL (1.6-8.9); Platelet Count 187 K/mcL (140-400); Red Blood Count 4.52 M/mcL (4.19-5.50); Red Cell Distribution Width 17.5 % (11.5-14.5); Segmented Neutrophils % 86.9 %
[2018-07-24 06:52] LABS: BUN/Creatinine Ratio 9 (6-26); Blood Urea Nitrogen 8 mg/dL (8-23); Calcium 8.8 mg/dL (8.6-10.3); Carbon Dioxide 28 mEq/L (23-29); Chloride 106 mEq/L (98-107); Glucose 140 mg/dL (70-105); Osmolality,Calculated 291 (280-300); Potassium 3.8 mEq/L (3.5-5.1); Sodium 140 mEq/L (136-145); eGFR For Non-African Americans > 60 (> 60)
[2018-07-24] MEDS: methylPREDNISolone 125 MG/2 ML VIAL IVP SCH (09:03)
[2018-07-24] MEDS: Pantoprazole 40 MG VIAL IVP SCH (09:04)
[2018-07-24 10:00] VITALS: BP 112/65
--- NOTE | 2018-07-24 12:05 | Discharge Summary ---
<DanniDebbie E - Last Filed: 07/24/18 12:02> Orders not resulted at time of discharge: Pending orders 07/23/18 17:44 Surgical Pathology [PTH] Routine Date of Encounter: 07/24/18 Time of Encounter: 09:00 - Discharge Diagnosis (1) Anemia Priority: Secondary Status: Acute Qualifiers: Anemia type: unspecified type Qualified Code(s): D64.9 - Anemia, unspecified (2) Small bowel obstruction Priority: Primary Status: Acute (3) BPH (benign prostatic hyperplasia) Priority: Secondary Status: Chronic Qualifiers: Lower urinary tract symptom presence: symptoms present Lower urinary tract symptom detail: unspecified Qualified Code(s): N40.1 - Benign prostatic hyperplasia with lower urinary tract symptoms (4) Crohn disease Priority: Primary Status: Chronic Qualifiers: Gastrointestinal tract location: unspecified location Digestive disease complication type: unspecified complication Qualified Code(s): K50.919 - Crohn's disease, unspecified, with unspecified complications (5) GERD (gastroesophageal reflux disease) Priority: Secondary Status: Chronic Qualifiers: Esophagitis presence: esophagitis presence not specified Qualified Code(s): K21.9 - Gastro-esophageal reflux disease without esophagitis (6) HTN (hypertension) Priority: Secondary Status: Chronic Qualifiers: Hypertension type: essential hypertension Qualified Code(s): I10 - Essential (primary) hypertension Hospital course: Mr. Castro is a 73 year old male Pt presented after 2 day hx of increasing periumbilical abd pain - has hx of Chron's disease and has had abdominal surgery x 2 - SBO most likely secondary to adhesions from multiple abdominal sx CT scan on admission showed SBO No rebound/guarding, no peritoneal signs Pt has hx of Chron's disease, diagnosed in the - has had hx of surgery x 2 w/ segments of colon removed - not on any immunomodulating rx Colonoscopy showed Chrones disease with rectal involvement and ileocolonic chrones disease to be treated with 40mg prednisone daily at discharge Endoscopy showed gastritis which will be treated with PPI Daily on discharge Discharge discussed with: patient, family - Time Spent with Patient Total time spent providing and/or coordinating discharge services: - Discharge Medications Prescriptions: Pantoprazole Sodium [Protonix] 40 mg PO BID 30 Days #60 tablet. predniSONE [PredniSONE] 40 mg PO DAILY 14 Days #14 tablet Home Medications: Cholecalciferol (D-3) [Vitamin D] 2,000 unit PO DAILY 01/30/16 [History] Cyanocobalamin (Vitamin B-12) [Vitamin B-12] 1,000 mcg SL DAILY 01/30/16 [History] Finasteride [Proscar] 5 mg PO DAILY 01/30/16 [History] Losartan [Cozaar] 25 mg PO DAILY 01/30/16 [History] Omeprazole [PriLOSEC] 40 mg PO DAILY 01/30/16 [History] Potassium Chloride [K-Tab ER] 20 meq PO TID 01/30/16 [History] Clotrimazole 1% CRM [Lotrimin 1%] 1 appl TP BID 02/09/16 [History] Loperamide HCl [Imodium A-D] 2 mg PO BID 02/09/16 [History] Acetaminophen [Tylenol] 500 mg PO Q6HR PRN #20 tablet 07/20/18 [Rx] Tamsulosin [Flomax] 0.4 mg PO BID 07/22/18 [History] Pantoprazole Sodium [Protonix] 40 mg PO BID 30 Days #60 tablet. 07/24/18 [Rx] predniSONE [PredniSONE] 40 mg PO DAILY 14 Days #14 tablet 07/24/18 [Rx] Allergies/Adverse Reactions: Allergy/AdvReac Type Severity Reaction Status Date / Time No Known Allergies Allergy Verified 07/20/18 20:13 Date of admission: 07/21/18 12:26 Primary care physician: Mina Lucas DO Consults: 07/20/18 23:16 Consult to Surgery [CONS] Stat Consulting Provider: [facility] Reason for Consult: SBO Call Completed: Yes 07/21/18 12:06 Consult to Gastroenterology [CONS] Routine Consulting Provider: [facility] Reason for Consult: Patient with SBO, history of Crohn's s/p [address] bowel resections. Patient of Dr. Sue Call Completed: Yes Discharging clinician: David Richardson Anticipated date of discharge: 07/24/18 - Constitutional Vitals: Temp Pulse Resp BP Pulse Ox 97.8 F 68 15 112/65 96 07/24/18 09:59 07/24/18 09:59 07/24/18 09:59 07/24/18 09:59 07/24/18 09:59 Exam: General: AAOx3, no acute distress, answers questions appropriately Cardio: RRR, no murmurs, rubs, gallops Pulm: CTAB, no rales, rhonchi, wheezing Abd: Normal bowel sounds, no pain on palpation, non-distended no guarding or rigidity Extremities: no pedal edema, pulses equal in all 4 extremities Skin: warm, dry, intact - Patient Status Disposition: Home, Self-Care Condition: Good Functional capacity at discharge: independent ambulation Overall status at discharge: patient is back to baseline - Discharge Instructions Instructions: Gastritis (GEN) Follow Up With: Jeremy Gruber DO [Partnered Physician] - 08/05/18 1:00 pm (New get established appointment. If you need to cancel please give a 24 hour notice. Thank you) [facility] [Provider Group] (2 weeks) Additional Instructions: Take all medications as prescribed Follow up with GI as directed - Diet and Activity Activity: resume usual activities as tolerated Diet: advance to your usual diet <David Richardson - Last Filed: 07/24/18 13:15> Orders not resulted at time of discharge: Pending orders 07/23/18 17:44 Surgical Pathology [PTH] Routine Date of Encounter: 07/24/18 Time of Encounter: 09:25 - Discharge Diagnosis (1) Crohn disease Status: Chronic Qualifiers: Gastrointestinal tract location: unspecified location Digestive disease complication type: unspecified complication Qualified Code(s): K50.919 - Crohn's disease, unspecified, with unspecified complications (2) Small bowel obstruction Status: Acute (3) HTN (hypertension) Status: Chronic Qualifiers: Hypertension type: essential hypertension Qualified Code(s): I10 - Essential (primary) hypertension (4) BPH (benign prostatic hyperplasia) Status: Chronic Qualifiers: Lower urinary tract symptom presence: symptoms present Lower urinary tract symptom detail: unspecified Qualified Code(s): N40.1 - Benign prostatic hyperplasia with lower urinary tract symptoms (5) DVT prophylaxis Status: Acute (6) GERD (gastroesophageal reflux disease) Status: Chronic Qualifiers: Esophagitis presence: esophagitis presence not specified Qualified Code(s): K21.9 - Gastro-esophageal reflux disease without esophagitis (7) Anemia Status: Acute Qualifiers: Anemia type: unspecified type Qualified Code(s): D64.9 - Anemia, unspecified Hospital course: Mr. Castro is a 73 year old male - Time Spent with Patient Total time spent providing and/or coordinating discharge services: Less than 30 minutes (8 min) Date of admission: 07/21/18 12:26 Primary care physician: Mina Lucas DO Consults: 07/20/18 23:16 Consult to Surgery [CONS] Stat Consulting Provider: [facility] Reason for Consult: SBO Call Completed: Yes 07/21/18 12:06 Consult to Gastroenterology [CONS] Routine Consulting Provider: [facility] Reason for Consult: Patient with SBO, history of Crohn's s/p [address] bowel resections. Patient of Dr. Sue Call Completed: Yes - Constitutional Vitals: Temp Pulse Resp BP Pulse Ox 97.8 F 68 15 112/65 96 07/24/18 09:59 07/24/18 09:59 07/24/18 09:59 07/24/18 09:59 07/24/18 09:59 - Attending Attestation I saw evaluated and examined this patient and my medical decision-making was reviewed with the Resident Physician, Crys Razo. I agree with the documented findings, disposition and treatment plan as described except to any changes set forth below. We independently had [id number] contact with the patient. 73-year-old male patient with history of Crohn's disease was hospitalized here with acute small bowel obstruction. Was treated conservatively with nasogastric tube connected to low intermittent suction. His symptoms slowly started to improve. A CT scan of the abdomen and pelvis suggested possible stenosis at ileocolonic anastomosis site. As such GI was consulted and they proceeded with EGD and colonoscopy for possible dietitian. However patient was found to have asymmetry lesions history of Crohn's flareup. Patient was then started on Solu- Medrol and is now been transitioned to prednisone. Patient is doing well overall and is tolerating diet. Is having bowel movements without any issues. He is stable to be discharged home. Patient is not on any medications for Crohn's disease and will follow up with GI for further management. He will be discharged on prednisone per GI recommendations. On exam, patient is awake and alert. Abdomen is soft, nontender. S1 and S2 normal. Breath sounds are normal.
== END 2018-07-24 15:52 | disposition home or self-care (01) | DRG 386 ==
LOC: EMEROOARM 20:02 → 3ANU 20:02 → SUATTDRO 07-21 12:26 → 3ANU 07-21 18:58
PROVIDERS: ADMIT Internal Medicine; ATTEND Internal Medicine
PROC: ENDOEBX (2018-07-23 14:45)
PROC: ENDOCBX (2018-07-23 14:45)